=== PATIENT | male | born 1935 | race Caucasian/White ===

== ENCOUNTER 2017-07-11 09:08 | Day surgery (SDC) | payer MEDICARE ==
[~2017-07-11] VITALS: Ht 182.9 cm; Wt 79.4 kg
[~2017-07-11 09:08] MED LIST: BUPIVACAINE/PF 0.5% ONE; HEPARIN 1,000 UNITS/ML, 10ML ONE; PROTAMINE SULFATE 10 MG/ML, 5ML ONE; THROMBIN 5,000 UNIT VIAL TP ONE
[2017-07-11 10:35] VITALS: BP 180/80
[2017-07-11] MEDS ORDERED: INSU100V8 SQ (11:00)
[2017-07-11] MEDS ORDERED: CHOL20002 PO (11:00)
[2017-07-11] MEDS ORDERED: SEVE800T8 PO (11:00)
[2017-07-11] MEDS ORDERED: INSU100C5 SQ-INSULIN (11:00)
[2017-07-11] MEDS ORDERED: LOSA100T6 PO (11:00)
[2017-07-11] MEDS ORDERED: FENTANYL PF 100 MCG/2ML ONE (11:08)
[2017-07-11] MEDS ORDERED: CEFAZOLIN 1,000 MG ONE (11:47)
[2017-07-11] MEDS ORDERED: PROPOFOL 10 MG/ML, 20ML ONE (11:47)
[2017-07-11] MEDS ORDERED: PROMETHAZINE 25 MG/ML, 1ML IV PRN (12:00)
[2017-07-11] MEDS ORDERED: ONDANSETRON 2MG/ML, 2ML IVPush PRN (12:00)
[2017-07-11] MEDS ORDERED: HYDROmorphone 1 MG/ML, 1ML IV PRN (12:00)
[2017-07-11] MEDS ORDERED: hydrALAzine 20 MG/ML, 1ML IV PRN (12:00)
[2017-07-11] MEDS ORDERED: OXYcodone 5 MG/5 ML ORAL.SOL UDC PO PRN (12:00)
[2017-07-11] MEDS ORDERED: LABETALOL 5MG/ML, 20ML IV PRN (12:00)
[2017-07-11] MEDS ORDERED: FENTANYL PF 100 MCG/2ML IV PRN (12:00)
[2017-07-11] MEDS ORDERED: OXYcodone 5 MG/5 ML ORAL.SOL UDC ONE (12:57)
[2017-07-11] MEDS ORDERED: HEPARIN 1,000 UNITS/ML, 1ML IV ONE (13:30)
[2017-07-11] MEDS ORDERED: HEPARIN 1,000 UNITS/ML, 1ML IVPush ONE (13:30)
== END 2017-07-11 15:15 ==
LOC: OUT 09:08
PROVIDERS: ATTEND Surgery Vascular Surgery
DX: E11.22 Type 2 diabetes mellitus with diabetic chronic kidney disease (principal); I12.0 Hypertensive chronic kidney disease with stage 5 chronic kidney disease or end stage renal disease; N18.6 End stage renal disease; Z88.8 Allergy status to other drugs, medicaments and biological substances; Z79.4 Long term (current) use of insulin
CPT/HCPCS: 36415; 36821; 80047; 93005; J0690; J1644; J2704; J3010; J2720; J3490

== ENCOUNTER → 2017-09-22 | Outpatient (CLI) | payer MEDICARE ==
[~2017-09-22] MED LIST changes: +ASPI-496 PO; +ATOR40TA78 PO; -BUPIVACAINE/PF 0.5% ONE; +CHOL20002 PO; +CLOP75TA52 PO; +GABA300C10 PO; -HEPARIN 1,000 UNITS/ML, 10ML ONE; +INSU100C5 SQ-INSULIN; +INSU100V8 SQ; +LOSA100T6 PO; -PROTAMINE SULFATE 10 MG/ML, 5ML ONE; +SEVE800T8 PO; -THROMBIN 5,000 UNIT VIAL TP ONE
[2017-09-22 15:22] LABS: HEMATOCRIT 29.9 % (39.2-51.8); HEMOGLOBIN 10.3 g/dL (13.7-18.0); WHITE BLOOD COUNT 5.9 x10^3/uL (3.4-10)
[2017-09-22 15:45] LABS: BLOOD UREA NITROGEN 33 mg/dL (7-18)
[2017-09-22 15:50] LABS: ASPARTATE AMINO TRANSFERASE 16 U/L (15-37)
== END | disposition home or self-care (01) ==
LOC: STAR 14:15
PROVIDERS: ATTEND Surgery
DX: Z01.818 Encounter for other preprocedural examination (principal); R94.31 Abnormal electrocardiogram [ECG] [EKG]; I70.245 Atherosclerosis of native arteries of left leg with ulceration of other part of foot; L97.529 Non-pressure chronic ulcer of other part of left foot with unspecified severity; R79.1 Abnormal coagulation profile
CPT/HCPCS: 36415; 80053; 85025; 85610; 85730; 93005

== ENCOUNTER 2017-09-29 12:16 | Inpatient (IN) | payer MEDICARE ==
[~2017-09-29] VITALS: Ht 182.9 cm; Wt 80.3 kg
[2017-09-29 13:14] VITALS: BP 148/73
[2017-09-29] MEDS ORDERED: SODIUM CHLORIDE 0.45% 1,000 ML IV SCH (13:30)
[2017-09-29] MEDS ORDERED: PLEASE ENTER HEIGHT AND WEIGHT MC SCH (13:30)
[2017-09-29] MEDS ORDERED: FENTANYL PF 100 MCG/2ML ONE (15:06)
[2017-09-29] MEDS ORDERED: HEPARIN 1,000 UNITS/ML, 10ML ONE (15:06)
[2017-09-29] MEDS ORDERED: NALOXONE 1 MG/ML, 2ML ONE (15:06)
[2017-09-29] MEDS ORDERED: PROTAMINE SULFATE 10 MG/ML, 25ML ONE (15:06)
[2017-09-29] MEDS ORDERED: MIDAZOLAM 1 MG/ML, 5ML ONE (15:06)
[2017-09-29] MEDS ORDERED: LIDOCAINE 2%, 20ML ONE (15:06)
[2017-09-29] MEDS ORDERED: VISIPAQUE 270 MG/ML, 50ML BOTTLE ONE (16:00)
[2017-09-29] MEDS ORDERED: SODIUM CHLORIDE 0.9% 1,000 ML IV SCH (16:55)
[2017-09-29] MEDS ORDERED: INSULIN ASPART 100 UNITS/ML, PEN SQ-INSULIN SCH (17:00)
[2017-09-29] MEDS ORDERED: morphine SULFATE 10 MG/ML, 1ML IVPush PRN (17:00)
[2017-09-29] MEDS ORDERED: hydrALAzine 20 MG/ML, 1ML IVPush PRN (17:00)
[2017-09-29] MEDS ORDERED: ONDANSETRON 2MG/ML, 2ML IVPush PRN (17:00)
[2017-09-29 18:02] LABS: HEMATOCRIT 26.5 % (39.2-51.8); WHITE BLOOD COUNT 5.6 x10^3/uL (3.4-10)
[2017-09-29 18:14] LABS: BLOOD UREA NITROGEN 30 mg/dL (7-18)
[2017-09-29] MEDS ORDERED: HYDROcodone/APAP 5/325 TABLET PO PRN (19:00)
[2017-09-29] MEDS: POTASSIUM CHLORIDE 20 MEQ in LACTATED RINGERS 1,000 ML IV SCH (19:00)
[2017-09-29 20:05] VITALS: BP 157/76
[2017-09-29] MEDS ORDERED: ATORVASTATIN 40 MG TABLET PO SCH (21:00)
[2017-09-29] MEDS ORDERED: INSULIN DETEMIR 100 UNITS/ML, PEN SQ-INSULIN SCH (21:00)
[2017-09-29] MEDS: GABAPENTIN 300 MG CAPSULE PO SCH (22:20)
[2017-09-29] MEDS: INSULIN ASPART 100 UNITS/ML, 3ML PEN HIGH DOSE SS SQ-INSULIN SCH (22:21)
[2017-09-29 23:47] VITALS: BP 140/65
[2017-09-30] MEDS: POTASSIUM CHLORIDE 20 MEQ in LACTATED RINGERS 1,000 ML IV SCH (03:05)
[2017-09-30 04:00] VITALS: BP 154/71
[2017-09-30 05:40] LABS: HEMATOCRIT 25.8 % (39.2-51.8); HEMOGLOBIN 8.8 g/dL (13.7-18.0); WHITE BLOOD COUNT 5.9 x10^3/uL (3.4-10)
[2017-09-30 05:51] LABS: ASPARTATE AMINO TRANSFERASE 10 U/L (15-37); BLOOD UREA NITROGEN 32 mg/dL (7-18)
[2017-09-30] MEDS ORDERED: FENTANYL PF 100 MCG/2ML ONE (06:36)
[2017-09-30] MEDS ORDERED: MIDAZOLAM 1 MG/ML, 2ML ONE (06:36)
[2017-09-30] MEDS ORDERED: PROPOFOL 10 MG/ML, 20ML ONE ×2 (06:48→08:21)
[2017-09-30] MEDS ORDERED: CEFAZOLIN 1,000 MG ONE ×2 (06:48→08:21)
[2017-09-30] MEDS ORDERED: DEXAMETHASONE 4 MG/ML, 1ML ONE ×2 (06:48→08:21)
[2017-09-30] MEDS ORDERED: ONDANSETRON 2MG/ML, 2ML ONE ×2 (06:48→08:21)
[2017-09-30] MEDS ORDERED: FENTANYL PF 250 MCG/5ML ONE (06:48)
[2017-09-30] MEDS: INSULIN ASPART 100 UNITS/ML, 3ML PEN HIGH DOSE SS SQ-INSULIN SCH ×3 (07:00→16:24)
[2017-09-30] MEDS ORDERED: ACETAMINOPHEN 325 MG TABLET PO PRN (07:30)
[2017-09-30] MEDS ORDERED: LABETALOL 5MG/ML, 20ML IV PRN (07:30)
[2017-09-30] MEDS ORDERED: PANTOPRAZOLE 40 MG IV IVPush SCH (07:30)
[2017-09-30] MEDS ORDERED: METOPROLOL 1 MG/ML, 5ML IV PRN (07:30)
[2017-09-30] MEDS ORDERED: EPHEDRINE 50 MG/ML, 1ML IVPush PRN (07:30)
[2017-09-30] MEDS ORDERED: ALBUTEROL SULFATE 2.5 MG/3 ML NPPB PRN (07:30)
[2017-09-30] MEDS ORDERED: MIDAZOLAM 1 MG/ML, 2ML IV PRN (07:30)
[2017-09-30] MEDS ORDERED: PROMETHAZINE 25 MG/ML, 1ML IV PRN (07:30)
[2017-09-30] MEDS ORDERED: hydrALAzine 20 MG/ML, 1ML IV PRN (07:30)
[2017-09-30] MEDS ORDERED: HYDROmorphone 1 MG/ML, 1ML IV PRN (07:30)
[2017-09-30] MEDS ORDERED: HYDROcodone/APAP 7.5-325MG/15ML UDC PO PRN (07:30)
[2017-09-30] MEDS ORDERED: ONDANSETRON 2MG/ML, 2ML IVPush PRN (07:30)
[2017-09-30] MEDS ORDERED: OXYcodone 5 MG/5 ML ORAL.SOL UDC PO PRN (07:30)
[2017-09-30] MEDS: FENTANYL PF 100 MCG/2ML IV PRN ×2 (07:59→08:25)
[2017-09-30] MEDS ORDERED: CHOLECALCIFEROL 1,000 UNIT TABLET PO SCH ×2 (09:00→11:00)
[2017-09-30] MEDS ORDERED: CLOPIDOGREL 75 MG TABLET PO SCH ×2 (09:00→11:00)
[2017-09-30] MEDS: SEVELAMER 800MG TABLET PO SCH ×3 (09:22→16:24)
[2017-09-30] MEDS: GABAPENTIN 300 MG CAPSULE PO SCH ×3 (09:23→16:22)
[2017-09-30 09:30] VITALS: BP 154/43
[2017-09-30] MEDS: SEVELAMER CARBONATE 800 MG PO SCH ×3 (10:30→17:00)
[2017-09-30] MEDS ORDERED: HYDR-3240 PO (10:32)
[2017-09-30] MEDS ORDERED: ASPIRIN 81 MG TABLET EC PO SCH (11:00)
[2017-09-30] MEDS ORDERED: MEPERIDINE/PF 50 MG/ML IV PRN (14:00)
[2017-09-30] MEDS ORDERED: MORPHINE SULFATE 4 MG/ML, 1ML IVPush PRN (14:00)
[2017-09-30] MEDS ORDERED: ATORVASTATIN 40 MG TABLET PO SCH (21:00)
[2017-09-30] MEDS ORDERED: INSULIN GLARGINE HUM REC ANLOG 10 UNIT SQ SCH (21:00)
== END 2017-09-30 17:53 | disposition home or self-care (01) | DRG 299 ==
LOC: OUT 12:16 → 4NOR 16:55 → OUT 16:55 → SUATTDRO 16:55 → 4NOR 17:05
PROVIDERS: ADMIT Internal Medicine; ATTEND Internal Medicine
PROC: B41G1ZZ Fluoroscopy of Left Lower Extremity Arteries using Low Osmolar Contrast (ICD-10-PCS; 2017-09-29)
PROC: 5A1D70Z Performance of Urinary Filtration, Intermittent, Less than 6 Hours Per Day (ICD-10-PCS; principal; 2017-09-30 07:00)
DX: E11.52 Type 2 diabetes mellitus with diabetic peripheral angiopathy with gangrene (principal); N18.6 End stage renal disease; E11.22 Type 2 diabetes mellitus with diabetic chronic kidney disease; I12.0 Hypertensive chronic kidney disease with stage 5 chronic kidney disease or end stage renal disease; I70.268 Atherosclerosis of native arteries of extremities with gangrene, other extremity; D64.9 Anemia, unspecified; E78.5 Hyperlipidemia, unspecified; I99.8 Other disorder of circulatory system; Z80.0 Family history of malignant neoplasm of digestive organs; Z87.891 Personal history of nicotine dependence; Z85.828 Personal history of other malignant neoplasm of skin; Z99.2 Dependence on renal dialysis; Z82.49 Family history of ischemic heart disease and other diseases of the circulatory system; Z83.3 Family history of diabetes mellitus; Z88.7 Allergy status to serum and vaccine; Z79.82 Long term (current) use of aspirin
CPT/HCPCS: 36200; 36415; 75630; 75710; 80048; 80053; 82962; 83036; 83735; 84100; 84439; 84443; 85025; 85610; 99156; 99157; J0690; J1100; J1644; J1815; J2250; J2405; J2704; J2720; J3010; J3490; Q9966; C1751; C1769; C1894; J2310; J7030

== ENCOUNTER 2017-10-03 02:10 | Inpatient (IN) | payer MEDICARE ==
[~2017-10-03] VITALS: Ht 182.9 cm; Wt 79.0 kg
[2017-10-03 01:40] VITALS: BP 133/67
[~2017-10-03 02:10] MED LIST changes: +HYDR-3240 PO
[2017-10-03] MEDS: SODIUM CHLORIDE 0.9% 1,000 ML IV SCH ×2 (02:35→08:00)
[2017-10-03] MEDS: [UNRECOGNIZED DRUG - OTHER] MC SCH ×2 (03:00→04:00)
[2017-10-03] MEDS ORDERED: GLUCAGON 1 MG IM PRN (03:00)
[2017-10-03] MEDS ORDERED: VANCOMYCIN PER PHARMACY MC PRN (03:00)
[2017-10-03] MEDS ORDERED: DEXTROSE 4 GM TAB.CHEW PO PRN (03:00)
[2017-10-03] MEDS: INSULIN DETEMIR 100 UNITS/ML, PEN SQ-INSULIN SCH ×2 (03:00→22:18)
[2017-10-03] MEDS: HEPARIN 5,000 UNITS/ML, 1ML SQ SCH ×2 (03:00→18:13)
[2017-10-03] MEDS: CLINDAMYCIN PMX 300MG/50ML 50 ML IV SCH ×2 (03:00→11:00)
[2017-10-03] MEDS ORDERED: DEXTROSE 50%, 50ML SYRINGE IVPush PRN (03:00)
[2017-10-03 03:56] LABS: BASOPHILS # (AUTO) 0.06 x10^3/uL (0-0.1); BASOPHILS % (AUTO) 1 % (0-1); EOSINOPHILS % (AUTO) 0 % (1-7); LYMPHOCYTES # (AUTO) 1.37 x10^3/uL (1-3.4); LYMPHOCYTES % (AUTO) 11 % (22-44); MD NO; MEAN CORPUSCULAR HEMOGLOBIN 31.5 pg (27.5-34.5); MEAN CORPUSCULAR HGB CONC 33.4 g/dL (33.2-36.2); MEAN CORPUSCULAR VOLUME 94.2 fL (81-97); MEAN PLATELET VOLUME 7.1 fL (7.4-10.4); MONOCYTES # (AUTO) 0.79 x10^3/uL (0.2-0.8); MONOCYTES % (AUTO) 6 % (2-9); NEUTROPHILS # (AUTO) 10.27 x10^3/uL (1.8-6.8); NEUTROPHILS % (AUTO) 82 % (42-75); PLATELET COUNT 167 x10^3/uL (130-400); RED BLOOD COUNT 3.11 x10^6/uL (4.38-5.82); RED CELL DISTRIBUTION WIDTH 14.4 % (9.4-14.8)
[2017-10-03] MEDS ORDERED: VANCOMYCIN 1,500 MG in SODIUM CHLORIDE 0.9% 250 ML IV ONE (04:00)
[2017-10-03] MEDS ORDERED: PHARMACOKINETIC MONITORING MC PRN (04:00)
[2017-10-03] MEDS ORDERED: PHARMACOKINETIC CONSULTATION MC ONE (04:00)
[2017-10-03 04:01] LABS: ALANINE AMINOTRANSFERASE 9 U/L (12-78); ALBUMIN 2.6 g/dL (3.4-5.0); ANION GAP 10 mmol/L (5-15); CALCIUM 7.9 mg/dL (8.5-10.1); CHLORIDE 107 mmol/L (98-107); CREATININE 5.23 mg/dL (0.7-1.3)
[2017-10-03 04:03] LABS: ALKALINE PHOSPHATASE 76 U/L (45-117); BILIRUBIN,TOTAL 0.5 mg/dL (0.2-1.0); TOTAL PROTEIN 6.1 g/dL (6.4-8.2)
[2017-10-03] MEDS: INSULIN ASPART 100 UNITS/ML, PEN SQ-INSULIN SCH ×4 (07:00→22:18)
[2017-10-03 07:48] VITALS: BP 153/68
[2017-10-03] MEDS: CLOPIDOGREL 75 MG TABLET PO SCH (09:22)
[2017-10-03] MEDS: ASPIRIN 81 MG TABLET EC PO SCH (09:22)
[2017-10-03] MEDS: GABAPENTIN 300 MG CAPSULE PO SCH ×3 (09:22→22:17)
[2017-10-03] MEDS: POLYETHYLENE GLYCOL 17 GM PACKET PO SCH (09:22)
[2017-10-03] MEDS: SEVELAMER 800MG TABLET PO SCH ×3 (09:22→22:17)
[2017-10-03] MEDS: CHOLECALCIFEROL 1,000 UNIT TABLET PO SCH (09:22)
[2017-10-03] MEDS: SODIUM CHLORIDE FLUSH 10ML SYR IVF SCH ×2 (09:23→21:00)
[2017-10-03] MEDS: ACETAMINOPHEN 325 MG TABLET PO PRN ×2 (09:45→18:14)
[2017-10-03] MEDS ORDERED: PHARMACY INSTRUCTION MC SCH (11:30)
[2017-10-03] MEDS: PIPERACILLIN/TAZO/PMX 2.25GM 50 ML IVPB SCH (12:49)
[2017-10-03 12:54] VITALS: BP 138/61
[2017-10-03 20:00] VITALS: BP 125/51
[2017-10-03] MEDS: ATORVASTATIN 40 MG TABLET PO SCH (22:17)
[2017-10-04] MEDS: PIPERACILLIN/TAZO/PMX 2.25GM 50 ML IVPB SCH ×2 (00:15→12:47)
[2017-10-04 02:00] VITALS: BP 137/61
[2017-10-04] MEDS: HEPARIN 5,000 UNITS/ML, 1ML SQ SCH ×2 (04:24→17:40)
[2017-10-04 06:03] LABS: CHLORIDE 103 mmol/L (98-107)
[2017-10-04 06:04] LABS: BASOPHILS % (AUTO) 1 % (0-1); EOSINOPHILS # (AUTO) 0.09 x10^3/uL (0-0.4); EOSINOPHILS % (AUTO) 1 % (1-7); LYMPHOCYTES % (AUTO) 14 % (22-44); MD NO; MEAN CORPUSCULAR HEMOGLOBIN 32.3 pg (27.5-34.5); MEAN CORPUSCULAR HGB CONC 34.5 g/dL (33.2-36.2); MEAN CORPUSCULAR VOLUME 93.6 fL (81-97); MEAN PLATELET VOLUME 7.9 fL (7.4-10.4); MONOCYTES # (AUTO) 0.64 x10^3/uL (0.2-0.8); MONOCYTES % (AUTO) 8 % (2-9); NEUTROPHILS # (AUTO) 6.41 x10^3/uL (1.8-6.8); NEUTROPHILS % (AUTO) 76 % (42-75); PLATELET COUNT 143 x10^3/uL (130-400); RED BLOOD COUNT 2.63 x10^6/uL (4.38-5.82); RED CELL DISTRIBUTION WIDTH 14.4 % (9.4-14.8)
[2017-10-04 06:27] LABS: ALANINE AMINOTRANSFERASE 6 U/L (12-78); ALBUMIN 2.4 g/dL (3.4-5.0); ALKALINE PHOSPHATASE 68 U/L (45-117); ANION GAP 11 mmol/L (5-15); BILIRUBIN,TOTAL 0.4 mg/dL (0.2-1.0); CALCIUM 8.3 mg/dL (8.5-10.1); CREATININE 3.64 mg/dL (0.7-1.3)
[2017-10-04] MEDS: INSULIN ASPART 100 UNITS/ML, PEN SQ-INSULIN SCH ×4 (07:00→20:43)
[2017-10-04 08:22] VITALS: BP 133/59
[2017-10-04] MEDS: CLOPIDOGREL 75 MG TABLET PO SCH (08:50)
[2017-10-04] MEDS: GABAPENTIN 300 MG CAPSULE PO SCH ×3 (08:50→20:42)
[2017-10-04] MEDS: POLYETHYLENE GLYCOL 17 GM PACKET PO SCH (08:50)
[2017-10-04] MEDS: ASPIRIN 81 MG TABLET EC PO SCH (08:51)
[2017-10-04] MEDS: SEVELAMER 800MG TABLET PO SCH ×3 (08:51→20:42)
[2017-10-04] MEDS: CHOLECALCIFEROL 1,000 UNIT TABLET PO SCH (08:58)
[2017-10-04 12:34] VITALS: BP 127/52
[2017-10-04] MEDS: SODIUM CHLORIDE FLUSH 10ML SYR IVF SCH ×2 (13:41→20:42)
[2017-10-04] MEDS: ACETAMINOPHEN 325 MG TABLET PO PRN (13:58)
[2017-10-04] MEDS: SODIUM CHLORIDE 0.9% 1,000 ML IV SCH (17:24)
[2017-10-04 20:00] VITALS: BP 134/54
[2017-10-04] MEDS: ATORVASTATIN 40 MG TABLET PO SCH (20:42)
[2017-10-04] MEDS: INSULIN DETEMIR 100 UNITS/ML, PEN SQ-INSULIN SCH (20:43)
[2017-10-05] MEDS: PIPERACILLIN/TAZO/PMX 2.25GM 50 ML IVPB SCH ×2 (00:44→12:57)
[2017-10-05 02:00] VITALS: BP 148/68
[2017-10-05] MEDS: HEPARIN 5,000 UNITS/ML, 1ML SQ SCH ×2 (05:05→20:52)
[2017-10-05 05:54] LABS: BASOPHILS # (AUTO) 0.01 x10^3/uL (0-0.1); BASOPHILS % (AUTO) 0 % (0-1); EOSINOPHILS # (AUTO) 0.06 x10^3/uL (0-0.4); EOSINOPHILS % (AUTO) 1 % (1-7); LYMPHOCYTES # (AUTO) 1.09 x10^3/uL (1-3.4); LYMPHOCYTES % (AUTO) 15 % (22-44); MD NO; MEAN CORPUSCULAR HEMOGLOBIN 31.4 pg (27.5-34.5); MEAN CORPUSCULAR HGB CONC 33.4 g/dL (33.2-36.2); MEAN CORPUSCULAR VOLUME 94.2 fL (81-97); MEAN PLATELET VOLUME 7.6 fL (7.4-10.4); MONOCYTES # (AUTO) 0.47 x10^3/uL (0.2-0.8); MONOCYTES % (AUTO) 6 % (2-9); NEUTROPHILS # (AUTO) 5.78 x10^3/uL (1.8-6.8); NEUTROPHILS % (AUTO) 78 % (42-75); PLATELET COUNT 153 x10^3/uL (130-400); RED BLOOD COUNT 2.51 x10^6/uL (4.38-5.82); RED CELL DISTRIBUTION WIDTH 14.2 % (9.4-14.8)
[2017-10-05 06:00] LABS: CALCIUM 8.1 mg/dL (8.5-10.1); CHLORIDE 105 mmol/L (98-107)
[2017-10-05 06:06] LABS: ALANINE AMINOTRANSFERASE 10 U/L (12-78); ALBUMIN 2.2 g/dL (3.4-5.0); ALKALINE PHOSPHATASE 84 U/L (45-117); ANION GAP 9 mmol/L (5-15); BILIRUBIN,TOTAL 0.5 mg/dL (0.2-1.0); CREATININE 4.39 mg/dL (0.7-1.3); TOTAL PROTEIN 5.7 g/dL (6.4-8.2); VANCOMYCIN,RANDOM 11.2 mcg/mL
[2017-10-05] MEDS ORDERED: VANCOMYCIN 1,500 MG in SODIUM CHLORIDE 0.9% 250 ML IV SCH (07:00)
[2017-10-05] MEDS: INSULIN ASPART 100 UNITS/ML, PEN SQ-INSULIN SCH ×4 (07:00→20:54)
[2017-10-05 07:14] VITALS: BP 141/61
[2017-10-05] MEDS: POLYETHYLENE GLYCOL 17 GM PACKET PO SCH (07:38)
[2017-10-05] MEDS: SODIUM CHLORIDE FLUSH 10ML SYR IVF SCH ×2 (09:00→20:53)
[2017-10-05] MEDS: SEVELAMER 800MG TABLET PO SCH ×3 (09:00→20:52)
[2017-10-05] MEDS: ASPIRIN 81 MG TABLET EC PO SCH (09:00)
[2017-10-05] MEDS: GABAPENTIN 300 MG CAPSULE PO SCH ×3 (09:00→20:52)
[2017-10-05] MEDS: SODIUM CHLORIDE 0.9% 1,000 ML IV SCH (11:00)
[2017-10-05] MEDS: CLOPIDOGREL 75 MG TABLET PO SCH (12:57)
[2017-10-05] MEDS: CHOLECALCIFEROL 1,000 UNIT TABLET PO SCH (12:57)
[2017-10-05 13:29] VITALS: BP 122/45
[2017-10-05 20:00] VITALS: BP 133/53
[2017-10-05] MEDS: INSULIN DETEMIR 100 UNITS/ML, PEN SQ-INSULIN SCH (20:53)
[2017-10-05] MEDS: ATORVASTATIN 40 MG TABLET PO SCH (20:53)
[2017-10-05 23:35] LABS: ABSOLUTE RETICS # 0.029 x10^6/uL (0.5-1.5); RED BLOOD COUNT 2.6 x10^6/uL (4.38-5.82); RETICULOCYTE COUNT % 1.13 % (0.5-1.5)
[2017-10-06 00:07] LABS: CALCIUM 8.1 mg/dL (8.5-10.1)
[2017-10-06] MEDS: PIPERACILLIN/TAZO/PMX 2.25GM 50 ML IVPB SCH ×2 (00:09→12:36)
[2017-10-06 02:00] VITALS: BP 139/66
[2017-10-06 05:46] LABS: BASOPHILS # (AUTO) 0.11 x10^3/uL (0-0.1); BASOPHILS % (AUTO) 2 % (0-1); EOSINOPHILS # (AUTO) 0.14 x10^3/uL (0-0.4); EOSINOPHILS % (AUTO) 2 % (1-7); LYMPHOCYTES # (AUTO) 1.33 x10^3/uL (1-3.4); LYMPHOCYTES % (AUTO) 21 % (22-44); MD NO; MEAN CORPUSCULAR HEMOGLOBIN 31.5 pg (27.5-34.5); MEAN CORPUSCULAR HGB CONC 33.6 g/dL (33.2-36.2); MEAN CORPUSCULAR VOLUME 93.5 fL (81-97); MEAN PLATELET VOLUME 7.8 fL (7.4-10.4); MONOCYTES # (AUTO) 0.54 x10^3/uL (0.2-0.8); MONOCYTES % (AUTO) 8 % (2-9); NEUTROPHILS # (AUTO) 4.36 x10^3/uL (1.8-6.8); NEUTROPHILS % (AUTO) 67 % (42-75); PLATELET COUNT 158 x10^3/uL (130-400); RED CELL DISTRIBUTION WIDTH 14.2 % (9.4-14.8)
[2017-10-06 05:55] LABS: ANION GAP 8 mmol/L (5-15); CALCIUM 7.9 mg/dL (8.5-10.1); CHLORIDE 106 mmol/L (98-107); CREATININE 3.59 mg/dL (0.7-1.3)
[2017-10-06] MEDS: INSULIN ASPART 100 UNITS/ML, PEN SQ-INSULIN SCH ×4 (07:00→22:15)
[2017-10-06 07:02] VITALS: BP 137/62
[2017-10-06] MEDS: POLYETHYLENE GLYCOL 17 GM PACKET PO SCH (09:32)
[2017-10-06] MEDS: SODIUM CHLORIDE 0.9% 1,000 ML IV SCH (09:33)
[2017-10-06] MEDS: SODIUM CHLORIDE FLUSH 10ML SYR IVF SCH ×2 (09:34→22:15)
[2017-10-06] MEDS: GABAPENTIN 300 MG CAPSULE PO SCH ×3 (09:35→22:13)
[2017-10-06] MEDS: CLOPIDOGREL 75 MG TABLET PO SCH (09:35)
[2017-10-06] MEDS: ASPIRIN 81 MG TABLET EC PO SCH (09:36)
[2017-10-06] MEDS: HEPARIN 5,000 UNITS/ML, 1ML SQ SCH ×2 (09:36→22:13)
[2017-10-06] MEDS: SEVELAMER 800MG TABLET PO SCH ×3 (09:36→22:13)
[2017-10-06] MEDS: CHOLECALCIFEROL 1,000 UNIT TABLET PO SCH (09:36)
[2017-10-06 10:32] LABS: HCT (SEDRATE) 23.8 % (39.2-51.8)
[2017-10-06 12:43] VITALS: BP 135/50
[2017-10-06 20:19] VITALS: BP 137/60
[2017-10-06] MEDS: ATORVASTATIN 40 MG TABLET PO SCH (22:13)
[2017-10-06] MEDS: INSULIN DETEMIR 100 UNITS/ML, PEN SQ-INSULIN SCH (22:14)
[2017-10-07] MEDS: PIPERACILLIN/TAZO/PMX 2.25GM 50 ML IVPB SCH ×2 (00:09→15:14)
[2017-10-07 04:30] VITALS: BP 142/90
[2017-10-07] MEDS ORDERED: DARBEPOETIN 60 MCG/ML SQ SCH (04:30)
[2017-10-07 04:56] LABS: BASOPHILS # (AUTO) 0.04 x10^3/uL (0-0.1); BASOPHILS % (AUTO) 1 % (0-1); EOSINOPHILS # (AUTO) 0.13 x10^3/uL (0-0.4); EOSINOPHILS % (AUTO) 2 % (1-7); LYMPHOCYTES # (AUTO) 1.45 x10^3/uL (1-3.4); LYMPHOCYTES % (AUTO) 19 % (22-44); MD NO; MEAN CORPUSCULAR HEMOGLOBIN 31.5 pg (27.5-34.5); MEAN CORPUSCULAR HGB CONC 33.4 g/dL (33.2-36.2); MEAN CORPUSCULAR VOLUME 94.1 fL (81-97); MEAN PLATELET VOLUME 7.5 fL (7.4-10.4); MONOCYTES # (AUTO) 0.62 x10^3/uL (0.2-0.8); MONOCYTES % (AUTO) 8 % (2-9); NEUTROPHILS # (AUTO) 5.57 x10^3/uL (1.8-6.8); NEUTROPHILS % (AUTO) 71 % (42-75); PLATELET COUNT 170 x10^3/uL (130-400); RED BLOOD COUNT 2.77 x10^6/uL (4.38-5.82); RED CELL DISTRIBUTION WIDTH 14.3 % (9.4-14.8)
[2017-10-07 05:06] LABS: ANION GAP 9 mmol/L (5-15); CALCIUM 8.3 mg/dL (8.5-10.1); CHLORIDE 107 mmol/L (98-107)
[2017-10-07 05:10] LABS: CREATININE 4.54 mg/dL (0.7-1.3); VANCOMYCIN,RANDOM 16.6 mcg/mL
[2017-10-07] MEDS: IRON SUCROSE COMPLEX 100MG/5ML IV SCH (05:44)
[2017-10-07] MEDS: INSULIN ASPART 100 UNITS/ML, PEN SQ-INSULIN SCH ×4 (07:00→20:28)
[2017-10-07 07:58] VITALS: BP 147/64
[2017-10-07] MEDS: POLYETHYLENE GLYCOL 17 GM PACKET PO SCH (09:00)
[2017-10-07] MEDS: CHOLECALCIFEROL 1,000 UNIT TABLET PO SCH (09:30)
[2017-10-07] MEDS: GABAPENTIN 300 MG CAPSULE PO SCH ×3 (09:30→20:27)
[2017-10-07] MEDS: ASPIRIN 81 MG TABLET EC PO SCH (09:30)
[2017-10-07] MEDS: CLOPIDOGREL 75 MG TABLET PO SCH (09:30)
[2017-10-07] MEDS: SEVELAMER 800MG TABLET PO SCH ×3 (09:30→20:27)
[2017-10-07] MEDS: ACETAMINOPHEN 325 MG TABLET PO PRN (09:31)
[2017-10-07] MEDS: HEPARIN 5,000 UNITS/ML, 1ML SQ SCH ×2 (09:31→20:28)
[2017-10-07] MEDS: SODIUM CHLORIDE FLUSH 10ML SYR IVF SCH ×2 (09:37→20:29)
[2017-10-07] MEDS: HYDROcodone/APAP 5/325 TABLET PO PRN (11:19)
[2017-10-07] MEDS: SODIUM CHLORIDE 0.9% 1,000 ML IV SCH (15:14)
[2017-10-07 16:25] VITALS: BP 146/59
[2017-10-07] MEDS ORDERED: VANCOMYCIN 1,200 MG in SODIUM CHLORIDE 0.9% 250 ML IV ONE (17:00)
[2017-10-07 19:38] VITALS: BP 131/70
[2017-10-07] MEDS: ATORVASTATIN 40 MG TABLET PO SCH (20:27)
[2017-10-07] MEDS: INSULIN DETEMIR 100 UNITS/ML, PEN SQ-INSULIN SCH (20:29)
[2017-10-08] MEDS: PIPERACILLIN/TAZO/PMX 2.25GM 50 ML IVPB SCH ×2 (00:29→12:23)
[2017-10-08 01:45] VITALS: BP 136/67
[2017-10-08 05:13] LABS: BASOPHILS # (AUTO) 0.05 x10^3/uL (0-0.1); BASOPHILS % (AUTO) 1 % (0-1); EOSINOPHILS # (AUTO) 0.14 x10^3/uL (0-0.4); EOSINOPHILS % (AUTO) 2 % (1-7); LYMPHOCYTES # (AUTO) 1.44 x10^3/uL (1-3.4); LYMPHOCYTES % (AUTO) 19 % (22-44); MD NO; MEAN CORPUSCULAR HEMOGLOBIN 31.4 pg (27.5-34.5); MEAN CORPUSCULAR HGB CONC 33.7 g/dL (33.2-36.2); MEAN CORPUSCULAR VOLUME 93.1 fL (81-97); MEAN PLATELET VOLUME 7.8 fL (7.4-10.4); MONOCYTES # (AUTO) 0.77 x10^3/uL (0.2-0.8); MONOCYTES % (AUTO) 10 % (2-9); NEUTROPHILS # (AUTO) 5.07 x10^3/uL (1.8-6.8); NEUTROPHILS % (AUTO) 68 % (42-75); PLATELET COUNT 170 x10^3/uL (130-400); RED BLOOD COUNT 2.78 x10^6/uL (4.38-5.82); RED CELL DISTRIBUTION WIDTH 14.1 % (9.4-14.8)
[2017-10-08 05:14] LABS: ANION GAP 8 mmol/L (5-15); CALCIUM 8.3 mg/dL (8.5-10.1); CHLORIDE 104 mmol/L (98-107); CREATININE 3.55 mg/dL (0.7-1.3)
[2017-10-08] MEDS: IRON SUCROSE COMPLEX 100MG/5ML IV SCH (05:42)
[2017-10-08 06:50] VITALS: BP 127/60
[2017-10-08] MEDS: INSULIN ASPART 100 UNITS/ML, PEN SQ-INSULIN SCH ×4 (07:00→20:56)
[2017-10-08] MEDS: SODIUM CHLORIDE 0.9% 1,000 ML IV SCH (08:00)
[2017-10-08 08:15] VITALS: BP 127/60
[2017-10-08] MEDS: GABAPENTIN 300 MG CAPSULE PO SCH ×3 (08:34→20:55)
[2017-10-08] MEDS: CLOPIDOGREL 75 MG TABLET PO SCH (08:34)
[2017-10-08] MEDS: SEVELAMER 800MG TABLET PO SCH ×3 (08:34→20:55)
[2017-10-08] MEDS: ASPIRIN 81 MG TABLET EC PO SCH (08:34)
[2017-10-08] MEDS: CHOLECALCIFEROL 1,000 UNIT TABLET PO SCH (08:34)
[2017-10-08] MEDS: SODIUM CHLORIDE FLUSH 10ML SYR IVF SCH ×2 (08:35→20:55)
[2017-10-08] MEDS: HEPARIN 5,000 UNITS/ML, 1ML SQ SCH ×2 (08:35→20:57)
[2017-10-08] MEDS: POLYETHYLENE GLYCOL 17 GM PACKET PO SCH (08:35)
[2017-10-08] MEDS: HYDROcodone/APAP 5/325 TABLET PO PRN (12:29)
[2017-10-08 13:10] VITALS: BP 123/58
[2017-10-08] MEDS ORDERED: DARBEPOETIN 60 MCG/ML SQ SCH (14:54)
[2017-10-08] MEDS ORDERED: ACETAMINOPHEN 500 MG TABLET PO PRN (14:55)
[2017-10-08 20:23] VITALS: BP 169/71
[2017-10-08] MEDS: ATORVASTATIN 40 MG TABLET PO SCH (20:55)
[2017-10-08] MEDS: INSULIN DETEMIR 100 UNITS/ML, PEN SQ-INSULIN SCH (20:56)
[2017-10-09] MEDS: PIPERACILLIN/TAZO/PMX 2.25GM 50 ML IVPB SCH ×2 (01:04→13:12)
[2017-10-09 03:30] VITALS: BP 142/69
[2017-10-09 05:28] LABS: HEMOGLOBIN A1C 6.8 % (4.2-6.3)
[2017-10-09] MEDS: IRON SUCROSE COMPLEX 100MG/5ML IV SCH (06:04)
[2017-10-09] MEDS: INSULIN ASPART 100 UNITS/ML, PEN SQ-INSULIN SCH ×4 (07:00→21:24)
[2017-10-09 07:20] VITALS: BP 155/67
[2017-10-09] MEDS: POLYETHYLENE GLYCOL 17 GM PACKET PO SCH (08:24)
[2017-10-09] MEDS: CLOPIDOGREL 75 MG TABLET PO SCH (08:24)
[2017-10-09] MEDS: SEVELAMER 800MG TABLET PO SCH ×3 (08:24→21:21)
[2017-10-09] MEDS: GABAPENTIN 300 MG CAPSULE PO SCH ×3 (08:24→21:21)
[2017-10-09] MEDS: ASPIRIN 81 MG TABLET EC PO SCH (08:24)
[2017-10-09] MEDS: CHOLECALCIFEROL 1,000 UNIT TABLET PO SCH (08:24)
[2017-10-09] MEDS: SODIUM CHLORIDE FLUSH 10ML SYR IVF SCH ×2 (08:24→21:00)
[2017-10-09] MEDS: HEPARIN 5,000 UNITS/ML, 1ML SQ SCH ×2 (08:25→21:21)
[2017-10-09 09:53] LABS: ANION GAP 10 mmol/L (5-15); CALCIUM 8.1 mg/dL (8.5-10.1); CHLORIDE 102 mmol/L (98-107); CREATININE 4.58 mg/dL (0.7-1.3)
[2017-10-09] MEDS: SODIUM CHLORIDE 0.9% 1,000 ML IV SCH (13:12)
[2017-10-09 13:59] VITALS: BP 148/67
[2017-10-09] MEDS: HYDROcodone/APAP 5/325 TABLET PO PRN (14:47)
[2017-10-09 20:00] VITALS: BP 134/55
[2017-10-09] MEDS: ATORVASTATIN 40 MG TABLET PO SCH (21:21)
[2017-10-09] MEDS: INSULIN DETEMIR 100 UNITS/ML, PEN SQ-INSULIN SCH (21:23)
[2017-10-10] MEDS: PIPERACILLIN/TAZO/PMX 2.25GM 50 ML IVPB SCH ×2 (01:29→13:36)
[2017-10-10 02:00] VITALS: BP 142/75
[2017-10-10 05:17] LABS: BASOPHILS # (AUTO) 0.02 x10^3/uL (0-0.1); BASOPHILS % (AUTO) 0 % (0-1); EOSINOPHILS # (AUTO) 0.34 x10^3/uL (0-0.4); EOSINOPHILS % (AUTO) 5 % (1-7); LYMPHOCYTES # (AUTO) 1.02 x10^3/uL (1-3.4); LYMPHOCYTES % (AUTO) 14 % (22-44); MD NO; MEAN CORPUSCULAR HEMOGLOBIN 31.2 pg (27.5-34.5); MEAN CORPUSCULAR HGB CONC 33.3 g/dL (33.2-36.2); MEAN CORPUSCULAR VOLUME 93.8 fL (81-97); MEAN PLATELET VOLUME 8.1 fL (7.4-10.4); MONOCYTES # (AUTO) 0.59 x10^3/uL (0.2-0.8); MONOCYTES % (AUTO) 8 % (2-9); NEUTROPHILS # (AUTO) 5.46 x10^3/uL (1.8-6.8); NEUTROPHILS % (AUTO) 74 % (42-75); PLATELET COUNT 194 x10^3/uL (130-400); RED BLOOD COUNT 2.73 x10^6/uL (4.38-5.82); RED CELL DISTRIBUTION WIDTH 13.8 % (9.4-14.8)
[2017-10-10 05:27] LABS: CHLORIDE 101 mmol/L (98-107)
[2017-10-10 05:43] LABS: ALANINE AMINOTRANSFERASE 23 U/L (12-78); ALBUMIN 2.2 g/dL (3.4-5.0); ALKALINE PHOSPHATASE 138 U/L (45-117); ANION GAP 9 mmol/L (5-15); BILIRUBIN,TOTAL 0.4 mg/dL (0.2-1.0); CALCIUM 8.4 mg/dL (8.5-10.1); CREATININE 5.14 mg/dL (0.7-1.3); TOTAL PROTEIN 6.6 g/dL (6.4-8.2)
[2017-10-10 05:48] LABS: VANCOMYCIN,RANDOM 19.4 mcg/mL
[2017-10-10 06:11] LABS: HCT (SEDRATE) 25.6 % (39.2-51.8)
[2017-10-10] MEDS: IRON SUCROSE COMPLEX 100MG/5ML IV SCH (06:39)
[2017-10-10] MEDS: INSULIN ASPART 100 UNITS/ML, PEN SQ-INSULIN SCH ×4 (07:00→21:05)
[2017-10-10 08:30] VITALS: BP 161/72
[2017-10-10] MEDS ORDERED: VANCOMYCIN 1,500 MG in SODIUM CHLORIDE 0.9% 250 ML IV SCH (09:00)
[2017-10-10] MEDS: HYDROcodone/APAP 5/325 TABLET PO PRN ×2 (09:05→14:59)
[2017-10-10] MEDS: ASPIRIN 81 MG TABLET EC PO SCH (11:53)
[2017-10-10] MEDS: GABAPENTIN 300 MG CAPSULE PO SCH ×3 (11:54→21:04)
[2017-10-10] MEDS: SEVELAMER 800MG TABLET PO SCH ×3 (11:54→21:04)
[2017-10-10] MEDS: HEPARIN 5,000 UNITS/ML, 1ML SQ SCH ×2 (11:54→21:06)
[2017-10-10] MEDS: CLOPIDOGREL 75 MG TABLET PO SCH (11:54)
[2017-10-10] MEDS: CHOLECALCIFEROL 1,000 UNIT TABLET PO SCH (11:54)
[2017-10-10] MEDS: SODIUM CHLORIDE FLUSH 10ML SYR IVF SCH ×2 (11:55→21:00)
[2017-10-10] MEDS: POLYETHYLENE GLYCOL 17 GM PACKET PO SCH (11:59)
[2017-10-10] MEDS: SODIUM CHLORIDE 0.9% 1,000 ML IV SCH (12:00)
[2017-10-10 12:45] VITALS: BP 136/60
[2017-10-10 18:34] VITALS: BP 148/60
[2017-10-10] MEDS: ATORVASTATIN 40 MG TABLET PO SCH (21:04)
[2017-10-10] MEDS: INSULIN DETEMIR 100 UNITS/ML, PEN SQ-INSULIN SCH (21:06)
[2017-10-11] MEDS: PIPERACILLIN/TAZO/PMX 2.25GM 50 ML IVPB SCH ×2 (01:26→12:50)
[2017-10-11 02:05] VITALS: BP 160/61
[2017-10-11 04:54] LABS: BASOPHILS # (AUTO) 0.03 x10^3/uL (0-0.1); BASOPHILS % (AUTO) 0 % (0-1); EOSINOPHILS # (AUTO) 0.14 x10^3/uL (0-0.4); EOSINOPHILS % (AUTO) 2 % (1-7); LYMPHOCYTES # (AUTO) 0.95 x10^3/uL (1-3.4); LYMPHOCYTES % (AUTO) 11 % (22-44); MD NO; MEAN CORPUSCULAR HEMOGLOBIN 31.3 pg (27.5-34.5); MEAN CORPUSCULAR HGB CONC 33.5 g/dL (33.2-36.2); MEAN CORPUSCULAR VOLUME 93.5 fL (81-97); MEAN PLATELET VOLUME 7.7 fL (7.4-10.4); MONOCYTES # (AUTO) 0.69 x10^3/uL (0.2-0.8); MONOCYTES % (AUTO) 8 % (2-9); NEUTROPHILS # (AUTO) 6.98 x10^3/uL (1.8-6.8); NEUTROPHILS % (AUTO) 80 % (42-75); PLATELET COUNT 198 x10^3/uL (130-400); RED BLOOD COUNT 2.46 x10^6/uL (4.38-5.82); RED CELL DISTRIBUTION WIDTH 13.9 % (9.4-14.8)
[2017-10-11 05:06] LABS: ANION GAP 9 mmol/L (5-15); CALCIUM 7.9 mg/dL (8.5-10.1); CHLORIDE 100 mmol/L (98-107); CREATININE 4.09 mg/dL (0.7-1.3)
[2017-10-11] MEDS: IRON SUCROSE COMPLEX 100MG/5ML IV SCH (05:43)
[2017-10-11 06:58] VITALS: BP 140/69
[2017-10-11] MEDS: INSULIN ASPART 100 UNITS/ML, PEN SQ-INSULIN SCH ×4 (07:00→21:50)
[2017-10-11] MEDS: ASPIRIN 81 MG TABLET EC PO SCH (08:27)
[2017-10-11] MEDS: SODIUM CHLORIDE 0.9% 1,000 ML IV SCH (08:27)
[2017-10-11] MEDS: SEVELAMER 800MG TABLET PO SCH ×3 (08:27→21:18)
[2017-10-11] MEDS: CLOPIDOGREL 75 MG TABLET PO SCH (08:27)
[2017-10-11] MEDS: GABAPENTIN 300 MG CAPSULE PO SCH (08:27)
[2017-10-11] MEDS: CHOLECALCIFEROL 1,000 UNIT TABLET PO SCH (08:27)
[2017-10-11] MEDS: SODIUM CHLORIDE FLUSH 10ML SYR IVF SCH ×2 (08:28→21:19)
[2017-10-11] MEDS: HEPARIN 5,000 UNITS/ML, 1ML SQ SCH ×2 (08:28→21:18)
[2017-10-11] MEDS: POLYETHYLENE GLYCOL 17 GM PACKET PO SCH (08:28)
[2017-10-11] MEDS: HYDROcodone/APAP 5/325 TABLET PO PRN (12:54)
[2017-10-11 13:32] VITALS: BP 164/73
[2017-10-11] MEDS: GABAPENTIN 100 MG CAPSULE PO SCH ×2 (17:20→21:18)
[2017-10-11 20:38] VITALS: BP 160/67
[2017-10-11] MEDS: ATORVASTATIN 40 MG TABLET PO SCH (21:18)
[2017-10-11] MEDS: INSULIN DETEMIR 100 UNITS/ML, PEN SQ-INSULIN SCH (21:19)
[2017-10-12] MEDS: PIPERACILLIN/TAZO/PMX 2.25GM 50 ML IVPB SCH ×2 (00:56→18:39)
[2017-10-12 01:02] VITALS: BP 158/76
[2017-10-12] MEDS: HYDROcodone/APAP 5/325 TABLET PO PRN ×2 (03:11→22:58)
[2017-10-12 05:52] LABS: BASOPHILS # (AUTO) 0.02 x10^3/uL (0-0.1); BASOPHILS % (AUTO) 0 % (0-1); EOSINOPHILS # (AUTO) 0.04 x10^3/uL (0-0.4); EOSINOPHILS % (AUTO) 0 % (1-7); LYMPHOCYTES # (AUTO) 0.88 x10^3/uL (1-3.4); LYMPHOCYTES % (AUTO) 7 % (22-44); MD NO; MEAN CORPUSCULAR HEMOGLOBIN 31.6 pg (27.5-34.5); MEAN CORPUSCULAR HGB CONC 33.8 g/dL (33.2-36.2); MEAN CORPUSCULAR VOLUME 93.6 fL (81-97); MEAN PLATELET VOLUME 7.9 fL (7.4-10.4); MONOCYTES # (AUTO) 0.61 x10^3/uL (0.2-0.8); MONOCYTES % (AUTO) 5 % (2-9); NEUTROPHILS # (AUTO) 10.87 x10^3/uL (1.8-6.8); NEUTROPHILS % (AUTO) 88 % (42-75); PLATELET COUNT 244 x10^3/uL (130-400); RED BLOOD COUNT 2.62 x10^6/uL (4.38-5.82); RED CELL DISTRIBUTION WIDTH 14.5 % (9.4-14.8)
[2017-10-12 05:56] LABS: ALBUMIN 2.2 g/dL (3.4-5.0); ANION GAP 10 mmol/L (5-15); CALCIUM 8.3 mg/dL (8.5-10.1); CHLORIDE 99 mmol/L (98-107)
[2017-10-12] MEDS: IRON SUCROSE COMPLEX 100MG/5ML IV SCH (05:58)
[2017-10-12 05:59] LABS: ALANINE AMINOTRANSFERASE 20 U/L (12-78); ALKALINE PHOSPHATASE 156 U/L (45-117); BILIRUBIN,TOTAL 0.8 mg/dL (0.2-1.0); CREATININE 4.79 mg/dL (0.7-1.3); TOTAL PROTEIN 6.4 g/dL (6.4-8.2)
[2017-10-12 07:39] VITALS: BP 119/76
[2017-10-12] MEDS: INSULIN ASPART 100 UNITS/ML, PEN SQ-INSULIN SCH ×4 (08:01→23:02)
[2017-10-12] MEDS: ASPIRIN 81 MG TABLET EC PO SCH (08:02)
[2017-10-12] MEDS: SEVELAMER 800MG TABLET PO SCH ×3 (08:02→22:59)
[2017-10-12] MEDS: GABAPENTIN 100 MG CAPSULE PO SCH ×3 (08:02→22:59)
[2017-10-12] MEDS: CLOPIDOGREL 75 MG TABLET PO SCH (08:02)
[2017-10-12] MEDS: CHOLECALCIFEROL 1,000 UNIT TABLET PO SCH (08:03)
[2017-10-12] MEDS: HEPARIN 5,000 UNITS/ML, 1ML SQ SCH ×2 (08:03→23:00)
[2017-10-12] MEDS: SODIUM CHLORIDE FLUSH 10ML SYR IVF SCH ×2 (08:03→21:00)
[2017-10-12] MEDS: POLYETHYLENE GLYCOL 17 GM PACKET PO SCH (08:04)
[2017-10-12] MEDS: SODIUM CHLORIDE 0.9% 1,000 ML IV SCH (08:11)
[2017-10-12 13:00] VITALS: BP 149/65
[2017-10-12] MEDS: LINEZOLID 600 MG TABLET PO SCH (18:40)
[2017-10-12 19:40] VITALS: BP 144/74
[2017-10-12] MEDS: morphine SULFATE 10 MG/ML, 1ML IVPush PRN (22:10)
[2017-10-12] MEDS: ATORVASTATIN 40 MG TABLET PO SCH (22:59)
[2017-10-12] MEDS ORDERED: ALUMINUM/MAG/SIMETHICONE 30 ML UDC PO PRN (23:00)
[2017-10-12] MEDS: INSULIN DETEMIR 100 UNITS/ML, PEN SQ-INSULIN SCH (23:01)
[2017-10-12 23:19] LABS: TROPONIN I 0.243 ng/mL (0.000-0.045)
[2017-10-13 02:00] VITALS: BP 128/73
[2017-10-13] MEDS ORDERED: HEPARIN 25,000 UNITS/500ML PMX 500 ML IV PRN (02:30)
[2017-10-13] MEDS ORDERED: HEPARIN 5,000 UNITS/ML, 1ML IV ONE (02:30)
[2017-10-13] MEDS ORDERED: HEPARIN 5,000 UNITS/ML, 1ML IV PRN (02:30)
[2017-10-13 05:40] LABS: BASOPHILS # (AUTO) 0.03 x10^3/uL (0-0.1); BASOPHILS % (AUTO) 0 % (0-1); EOSINOPHILS # (AUTO) 0.03 x10^3/uL (0-0.4); EOSINOPHILS % (AUTO) 0 % (1-7); LYMPHOCYTES # (AUTO) 1.01 x10^3/uL (1-3.4); LYMPHOCYTES % (AUTO) 10 % (22-44); MD NO; MEAN CORPUSCULAR HGB CONC 34.1 g/dL (33.2-36.2); MEAN CORPUSCULAR VOLUME 93.9 fL (81-97); MEAN PLATELET VOLUME 7.7 fL (7.4-10.4); MONOCYTES % (AUTO) 7 % (2-9); NEUTROPHILS # (AUTO) 8.44 x10^3/uL (1.8-6.8); NEUTROPHILS % (AUTO) 83 % (42-75); PLATELET COUNT 251 x10^3/uL (130-400); RED BLOOD COUNT 2.59 x10^6/uL (4.38-5.82); RED CELL DISTRIBUTION WIDTH 14.2 % (9.4-14.8)
[2017-10-13 05:51] LABS: ANION GAP 9 mmol/L (5-15); CALCIUM 8.5 mg/dL (8.5-10.1); CHLORIDE 102 mmol/L (98-107); CREATININE 3.52 mg/dL (0.7-1.3)
[2017-10-13] MEDS: PIPERACILLIN/TAZO/PMX 2.25GM 50 ML IVPB SCH ×2 (06:30→20:55)
[2017-10-13] MEDS: IRON SUCROSE COMPLEX 100MG/5ML IV SCH (06:44)
[2017-10-13] MEDS: LINEZOLID 600 MG TABLET PO SCH ×2 (06:50→16:30)
[2017-10-13 07:33] VITALS: BP 129/62
[2017-10-13] MEDS: INSULIN ASPART 100 UNITS/ML, PEN SQ-INSULIN SCH ×4 (08:31→23:14)
[2017-10-13] MEDS: SODIUM CHLORIDE FLUSH 10ML SYR IVF SCH ×2 (08:32→20:55)
[2017-10-13] MEDS: SEVELAMER 800MG TABLET PO SCH ×3 (08:34→23:06)
[2017-10-13] MEDS: CLOPIDOGREL 75 MG TABLET PO SCH (08:34)
[2017-10-13] MEDS: ASPIRIN 81 MG TABLET EC PO SCH (08:34)
[2017-10-13] MEDS: GABAPENTIN 100 MG CAPSULE PO SCH ×3 (08:34→23:06)
[2017-10-13] MEDS: POLYETHYLENE GLYCOL 17 GM PACKET PO SCH (08:34)
[2017-10-13] MEDS: CHOLECALCIFEROL 1,000 UNIT TABLET PO SCH (08:35)
[2017-10-13] MEDS ORDERED: SODIUM CHLORIDE 0.9% 1,000 ML IV ONE (09:28)
[2017-10-13 15:35] VITALS: BP 128/63
[2017-10-13] MEDS ORDERED: MIDAZOLAM 1 MG/ML, 5ML ONE (16:05)
[2017-10-13] MEDS ORDERED: LIDOCAINE 2%, 20ML ONE (16:06)
[2017-10-13] MEDS ORDERED: FENTANYL PF 100 MCG/2ML ONE (16:06)
[2017-10-13] MEDS ORDERED: BIVALIRUDIN 250 MG ONE (16:32)
[2017-10-13] MEDS ORDERED: TICAGRELOR 90 MG TABLET ONE (17:13)
[2017-10-13] MEDS ORDERED: BIVALIRUDIN 250 MG in DEXTROSE 5% 50 ML IV SCH (17:24)
[2017-10-13 20:00] VITALS: BP 173/77
[2017-10-13] MEDS: hydrALAzine 20 MG/ML, 1ML IVPush PRN (21:09)
[2017-10-13] MEDS ORDERED: AMIODARONE 900 MG in DEXTROSE 5% 482 ML IV PRN (22:30)
[2017-10-13] MEDS ORDERED: ONDANSETRON 2MG/ML, 2ML IVPush PRN (22:30)
[2017-10-13] MEDS ORDERED: FILTER 0.22 MICRON IV PRN (23:00)
[2017-10-13] MEDS: ATORVASTATIN 40 MG TABLET PO SCH (23:06)
[2017-10-13] MEDS: TICAGRELOR 90 MG TABLET PO SCH (23:06)
[2017-10-13] MEDS: INSULIN DETEMIR 100 UNITS/ML, PEN SQ-INSULIN SCH (23:15)
[2017-10-13 23:16] VITALS: BP 154/77
[2017-10-14 04:00] VITALS: BP 117/72
[2017-10-14] MEDS ORDERED: DARBEPOETIN 60 MCG/ML SQ SCH (05:00)
[2017-10-14 06:04] LABS: BASOPHILS % (AUTO) 0 % (0-1); EOSINOPHILS % (AUTO) 0 % (1-7); LYMPHOCYTES # (AUTO) 0.38 x10^3/uL (1-3.4); LYMPHOCYTES % (AUTO) 3 % (22-44); MD NO; MEAN CORPUSCULAR HEMOGLOBIN 31.4 pg (27.5-34.5); MEAN CORPUSCULAR HGB CONC 33.3 g/dL (33.2-36.2); MEAN CORPUSCULAR VOLUME 94.4 fL (81-97); MEAN PLATELET VOLUME 7.9 fL (7.4-10.4); MONOCYTES # (AUTO) 0.66 x10^3/uL (0.2-0.8); MONOCYTES % (AUTO) 4 % (2-9); NEUTROPHILS # (AUTO) 14.62 x10^3/uL (1.8-6.8); NEUTROPHILS % (AUTO) 93 % (42-75); PLATELET COUNT 264 x10^3/uL (130-400); RED BLOOD COUNT 2.76 x10^6/uL (4.38-5.82); RED CELL DISTRIBUTION WIDTH 14.3 % (9.4-14.8)
[2017-10-14 06:12] LABS: CALCIUM 8.5 mg/dL (8.5-10.1); CREATININE 4.37 mg/dL (0.7-1.3)
[2017-10-14] MEDS: IRON SUCROSE COMPLEX 100MG/5ML IV SCH (06:17)
[2017-10-14 06:18] LABS: ANION GAP 11 mmol/L (5-15); CHLORIDE 102 mmol/L (98-107)
[2017-10-14 07:35] VITALS: BP 128/71
[2017-10-14] MEDS: INSULIN ASPART 100 UNITS/ML, PEN SQ-INSULIN SCH ×4 (07:50→20:49)
[2017-10-14] MEDS: GABAPENTIN 100 MG CAPSULE PO SCH ×3 (09:00→20:45)
[2017-10-14] MEDS: SEVELAMER 800MG TABLET PO SCH ×3 (09:00→20:45)
[2017-10-14] MEDS: TICAGRELOR 90 MG TABLET PO SCH ×2 (11:07→20:45)
[2017-10-14 12:40] VITALS: BP 127/62
[2017-10-14] MEDS: PIPERACILLIN/TAZO/PMX 2.25GM 50 ML IVPB SCH (13:41)
[2017-10-14] MEDS: SODIUM CHLORIDE FLUSH 10ML SYR IVF SCH ×2 (13:41→22:38)
[2017-10-14] MEDS: ASPIRIN 81 MG TABLET EC PO SCH (13:41)
[2017-10-14] MEDS: LINEZOLID 600 MG TABLET PO SCH (13:42)
[2017-10-14] MEDS: POLYETHYLENE GLYCOL 17 GM PACKET PO SCH (13:42)
[2017-10-14] MEDS: HYDROcodone/APAP 5/325 TABLET PO PRN (16:24)
[2017-10-14 18:42] VITALS: BP 101/52
[2017-10-14] MEDS: morphine SULFATE 10 MG/ML, 1ML IVPush PRN (20:40)
[2017-10-14] MEDS: ATORVASTATIN 40 MG TABLET PO SCH (20:45)
[2017-10-14] MEDS: AMIODARONE 200 MG TABLET PO SCH (20:45)
[2017-10-14] MEDS: CHOLECALCIFEROL 1,000 UNIT TABLET PO SCH (20:46)
[2017-10-14] MEDS: INSULIN DETEMIR 100 UNITS/ML, PEN SQ-INSULIN SCH (20:49)
[2017-10-14] MEDS ORDERED: DEXAMETHASONE OPHTH 0.1%, 5ML EACHEYE SCH (21:00)
[2017-10-14] MEDS: predniSOLONE OPHTH SUSP 1%, 5ML EACHEYE SCH (22:37)
[2017-10-14] MEDS: DIPHENHYDRAMINE 50 MG CAPSULE PO PRN (23:19)
[2017-10-15] MEDS: PIPERACILLIN/TAZO/PMX 2.25GM 50 ML IVPB SCH ×2 (00:31→13:46)
[2017-10-15] MEDS: LINEZOLID 600 MG TABLET PO SCH ×2 (00:31→13:46)
[2017-10-15 01:11] VITALS: BP 126/67
[2017-10-15] MEDS: morphine SULFATE 10 MG/ML, 1ML IVPush PRN (04:05)
[2017-10-15 05:49] LABS: ALBUMIN 2.1 g/dL (3.4-5.0); ANION GAP 9 mmol/L (5-15); CALCIUM 8.3 mg/dL (8.5-10.1); CHLORIDE 102 mmol/L (98-107); CREATININE 3.79 mg/dL (0.7-1.3)
[2017-10-15 05:59] LABS: BASOPHILS # (AUTO) 0.02 x10^3/uL (0-0.1); BASOPHILS % (AUTO) 0 % (0-1); EOSINOPHILS # (AUTO) 0.26 x10^3/uL (0-0.4); EOSINOPHILS % (AUTO) 3 % (1-7); LYMPHOCYTES # (AUTO) 0.89 x10^3/uL (1-3.4); LYMPHOCYTES % (AUTO) 11 % (22-44); MD NO; MEAN CORPUSCULAR HEMOGLOBIN 31.7 pg (27.5-34.5); MEAN CORPUSCULAR HGB CONC 33.8 g/dL (33.2-36.2); MEAN CORPUSCULAR VOLUME 93.9 fL (81-97); MEAN PLATELET VOLUME 7.4 fL (7.4-10.4); MONOCYTES # (AUTO) 0.44 x10^3/uL (0.2-0.8); MONOCYTES % (AUTO) 6 % (2-9); NEUTROPHILS # (AUTO) 6.53 x10^3/uL (1.8-6.8); NEUTROPHILS % (AUTO) 80 % (42-75); PLATELET COUNT 267 x10^3/uL (130-400); RED BLOOD COUNT 2.54 x10^6/uL (4.38-5.82); RED CELL DISTRIBUTION WIDTH 15.1 % (9.4-14.8)
[2017-10-15] MEDS: predniSOLONE OPHTH SUSP 1%, 5ML EACHEYE SCH ×4 (06:53→19:59)
[2017-10-15] MEDS: IRON SUCROSE COMPLEX 100MG/5ML IV SCH (06:53)
[2017-10-15] MEDS: HYDROcodone/APAP 5/325 TABLET PO PRN ×3 (07:00→19:58)
[2017-10-15] MEDS: INSULIN ASPART 100 UNITS/ML, PEN SQ-INSULIN SCH ×4 (07:00→23:06)
[2017-10-15 08:12] VITALS: BP 125/52
[2017-10-15] MEDS: CHOLECALCIFEROL 1,000 UNIT TABLET PO SCH (08:51)
[2017-10-15] MEDS: SODIUM CHLORIDE FLUSH 10ML SYR IVF SCH ×2 (08:51→19:59)
[2017-10-15] MEDS: TICAGRELOR 90 MG TABLET PO SCH ×2 (08:51→19:59)
[2017-10-15] MEDS: AMIODARONE 200 MG TABLET PO SCH (08:51)
[2017-10-15] MEDS: GABAPENTIN 100 MG CAPSULE PO SCH ×3 (08:51→19:58)
[2017-10-15] MEDS: SEVELAMER 800MG TABLET PO SCH ×2 (08:51→13:46)
[2017-10-15] MEDS: ASPIRIN 81 MG TABLET EC PO SCH (08:51)
[2017-10-15] MEDS: POLYETHYLENE GLYCOL 17 GM PACKET PO SCH (09:00)
[2017-10-15 13:43] VITALS: BP 145/55
[2017-10-15 19:52] VITALS: BP 160/67
[2017-10-15] MEDS: ATORVASTATIN 40 MG TABLET PO SCH (19:59)
[2017-10-15] MEDS: INSULIN DETEMIR 100 UNITS/ML, PEN SQ-INSULIN SCH (20:03)
[2017-10-15] MEDS: TEMAZEPAM 15 MG CAPSULE PO PRN (21:32)
[2017-10-15] MEDS ORDERED: FUROSEMIDE 40 MG/4 ML IV ONE (22:00)
[2017-10-16 02:03] VITALS: BP 164/68
[2017-10-16] MEDS: LINEZOLID 600 MG TABLET PO SCH ×2 (02:06→13:05)
[2017-10-16] MEDS: PIPERACILLIN/TAZO/PMX 2.25GM 50 ML IVPB SCH ×2 (02:06→13:27)
[2017-10-16 05:20] LABS: BASOPHILS # (AUTO) 0.01 x10^3/uL (0-0.1); BASOPHILS % (AUTO) 0 % (0-1); EOSINOPHILS # (AUTO) 0.11 x10^3/uL (0-0.4); EOSINOPHILS % (AUTO) 2 % (1-7); LYMPHOCYTES # (AUTO) 0.52 x10^3/uL (1-3.4); LYMPHOCYTES % (AUTO) 8 % (22-44); MD NO; MEAN CORPUSCULAR HEMOGLOBIN 31.4 pg (27.5-34.5); MEAN CORPUSCULAR HGB CONC 33.5 g/dL (33.2-36.2); MEAN CORPUSCULAR VOLUME 93.7 fL (81-97); MEAN PLATELET VOLUME 7.2 fL (7.4-10.4); MONOCYTES # (AUTO) 0.43 x10^3/uL (0.2-0.8); MONOCYTES % (AUTO) 7 % (2-9); NEUTROPHILS # (AUTO) 5.54 x10^3/uL (1.8-6.8); NEUTROPHILS % (AUTO) 84 % (42-75); PLATELET COUNT 240 x10^3/uL (130-400); RED BLOOD COUNT 2.62 x10^6/uL (4.38-5.82); RED CELL DISTRIBUTION WIDTH 14.6 % (9.4-14.8)
[2017-10-16 05:27] LABS: CHLORIDE 97 mmol/L (98-107)
[2017-10-16 05:34] LABS: ALBUMIN 2.3 g/dL (3.4-5.0); ANION GAP 8 mmol/L (5-15); CALCIUM 8.2 mg/dL (8.5-10.1); CREATININE 5.04 mg/dL (0.7-1.3)
[2017-10-16] MEDS: IRON SUCROSE COMPLEX 100MG/5ML IV SCH (06:10)
[2017-10-16] MEDS: predniSOLONE OPHTH SUSP 1%, 5ML EACHEYE SCH ×4 (06:11→21:58)
[2017-10-16] MEDS: HYDROcodone/APAP 5/325 TABLET PO PRN ×2 (07:45→13:27)
[2017-10-16] MEDS: SEVELAMER 800MG TABLET PO SCH ×3 (07:45→16:41)
[2017-10-16] MEDS: INSULIN ASPART 100 UNITS/ML, PEN SQ-INSULIN SCH ×4 (07:46→21:58)
[2017-10-16] MEDS ORDERED: FUROSEMIDE 40 MG/4 ML IV ONE ×2 (08:30→22:30)
[2017-10-16] MEDS ORDERED: DARBEPOETIN 60 MCG/ML SQ SCH (08:47)
[2017-10-16 08:54] VITALS: BP 122/81
[2017-10-16] MEDS: CHOLECALCIFEROL 1,000 UNIT TABLET PO SCH (11:08)
[2017-10-16] MEDS: TICAGRELOR 90 MG TABLET PO SCH ×2 (11:09→21:59)
[2017-10-16] MEDS: GABAPENTIN 100 MG CAPSULE PO SCH ×3 (11:09→21:59)
[2017-10-16] MEDS: SODIUM CHLORIDE FLUSH 10ML SYR IVF SCH ×2 (11:09→21:59)
[2017-10-16] MEDS: POLYETHYLENE GLYCOL 17 GM PACKET PO SCH (11:09)
[2017-10-16] MEDS: ASPIRIN 81 MG TABLET EC PO SCH (11:09)
[2017-10-16 12:17] LABS: HCT (SEDRATE) 24.2 % (39.2-51.8)
[2017-10-16] MEDS: CARVEDILOL 3.125 MG TABLET PO SCH (16:41)
[2017-10-16 16:42] VITALS: BP 157/70
[2017-10-16 19:14] VITALS: BP 166/70
[2017-10-16] MEDS: morphine SULFATE 10 MG/ML, 1ML IVPush PRN (20:20)
[2017-10-16] MEDS: INSULIN DETEMIR 100 UNITS/ML, PEN SQ-INSULIN SCH (21:58)
[2017-10-16] MEDS: ATORVASTATIN 40 MG TABLET PO SCH (21:59)
[2017-10-16] MEDS: TEMAZEPAM 15 MG CAPSULE PO PRN (22:00)
[2017-10-16] MEDS ORDERED: LORazepam 2 MG/ML, 1ML IVPush ONE (22:00)
[2017-10-16 23:36] LABS: ALANINE AMINOTRANSFERASE 20 U/L (12-78); ALBUMIN 2.4 g/dL (3.4-5.0); ANION GAP 13 mmol/L (5-15); CALCIUM 8.3 mg/dL (8.5-10.1); CHLORIDE 93 mmol/L (98-107); CREATININE 5.85 mg/dL (0.7-1.3)
[2017-10-16 23:52] LABS: ALKALINE PHOSPHATASE 112 U/L (45-117); BILIRUBIN,TOTAL 0.5 mg/dL (0.2-1.0); TOTAL PROTEIN 6.9 g/dL (6.4-8.2)
[2017-10-17] MEDS: PIPERACILLIN/TAZO/PMX 2.25GM 50 ML IVPB SCH ×2 (01:13→13:42)
[2017-10-17] MEDS: LINEZOLID 600 MG TABLET PO SCH ×2 (01:14→13:31)
[2017-10-17 01:15] VITALS: BP 149/69
[2017-10-17 05:16] LABS: BASOPHILS # (AUTO) 0.02 x10^3/uL (0-0.1); BASOPHILS % (AUTO) 0 % (0-1); EOSINOPHILS # (AUTO) 0.02 x10^3/uL (0-0.4); EOSINOPHILS % (AUTO) 0 % (1-7); LYMPHOCYTES # (AUTO) 0.51 x10^3/uL (1-3.4); LYMPHOCYTES % (AUTO) 7 % (22-44); MD NO; MEAN CORPUSCULAR HEMOGLOBIN 31.4 pg (27.5-34.5); MEAN CORPUSCULAR HGB CONC 33.4 g/dL (33.2-36.2); MEAN PLATELET VOLUME 7.5 fL (7.4-10.4); MONOCYTES # (AUTO) 0.61 x10^3/uL (0.2-0.8); MONOCYTES % (AUTO) 8 % (2-9); NEUTROPHILS # (AUTO) 6.16 x10^3/uL (1.8-6.8); NEUTROPHILS % (AUTO) 84 % (42-75); PLATELET COUNT 211 x10^3/uL (130-400); RED BLOOD COUNT 2.65 x10^6/uL (4.38-5.82); RED CELL DISTRIBUTION WIDTH 14.9 % (9.4-14.8)
[2017-10-17 05:26] LABS: CHLORIDE 95 mmol/L (98-107)
[2017-10-17 05:36] LABS: ALBUMIN 2.2 g/dL (3.4-5.0); ANION GAP 14 mmol/L (5-15); CALCIUM 8.3 mg/dL (8.5-10.1); CREATININE 6.16 mg/dL (0.7-1.3)
[2017-10-17] MEDS: predniSOLONE OPHTH SUSP 1%, 5ML EACHEYE SCH ×4 (06:00→19:57)
[2017-10-17] MEDS: INSULIN ASPART 100 UNITS/ML, PEN SQ-INSULIN SCH ×4 (07:00→20:06)
[2017-10-17 07:52] VITALS: BP 166/75
[2017-10-17] MEDS: SEVELAMER 800MG TABLET PO SCH ×3 (08:00→17:45)
[2017-10-17] MEDS: POLYETHYLENE GLYCOL 17 GM PACKET PO SCH (09:00)
[2017-10-17] MEDS: IRON SUCROSE COMPLEX 100MG/5ML IV SCH (13:28)
[2017-10-17] MEDS: SODIUM CHLORIDE FLUSH 10ML SYR IVF SCH ×2 (13:29→19:57)
[2017-10-17] MEDS: TICAGRELOR 90 MG TABLET PO SCH ×2 (13:29→19:57)
[2017-10-17] MEDS: ASPIRIN 81 MG TABLET EC PO SCH (13:30)
[2017-10-17] MEDS: CARVEDILOL 3.125 MG TABLET PO SCH ×2 (13:30→17:59)
[2017-10-17] MEDS: GABAPENTIN 100 MG CAPSULE PO SCH ×3 (13:30→19:57)
[2017-10-17] MEDS: CHOLECALCIFEROL 1,000 UNIT TABLET PO SCH (13:31)
[2017-10-17] MEDS: HYDROcodone/APAP 5/325 TABLET PO PRN ×2 (13:52→17:45)
[2017-10-17 17:36] VITALS: BP 137/68
[2017-10-17] MEDS: ATORVASTATIN 40 MG TABLET PO SCH (19:57)
[2017-10-17 19:59] VITALS: BP 130/54
[2017-10-17] MEDS: INSULIN DETEMIR 100 UNITS/ML, PEN SQ-INSULIN SCH (20:02)
[2017-10-17] MEDS: TEMAZEPAM 15 MG CAPSULE PO PRN (21:32)
[2017-10-18] MEDS: PIPERACILLIN/TAZO/PMX 2.25GM 50 ML IVPB SCH ×2 (01:02→14:17)
[2017-10-18] MEDS: LINEZOLID 600 MG TABLET PO SCH ×2 (01:24→14:17)
[2017-10-18 01:38] VITALS: BP 140/74
[2017-10-18] MEDS: HYDROcodone/APAP 5/325 TABLET PO PRN ×3 (02:14→17:33)
[2017-10-18] MEDS: CARVEDILOL 3.125 MG TABLET PO SCH ×2 (05:34→17:33)
[2017-10-18] MEDS: predniSOLONE OPHTH SUSP 1%, 5ML EACHEYE SCH ×4 (05:35→20:21)
[2017-10-18] MEDS: morphine SULFATE 10 MG/ML, 1ML IVPush PRN (05:43)
[2017-10-18 05:59] LABS: CHLORIDE 98 mmol/L (98-107)
[2017-10-18 06:26] LABS: ANION GAP 9 mmol/L (5-15); CALCIUM 8.3 mg/dL (8.5-10.1); CREATININE 4.67 mg/dL (0.7-1.3)
[2017-10-18] MEDS: INSULIN ASPART 100 UNITS/ML, PEN SQ-INSULIN SCH ×4 (07:00→20:32)
[2017-10-18 07:06] LABS: BASOPHILS # (AUTO) 0.03 x10^3/uL (0-0.1); BASOPHILS % (AUTO) 1 % (0-1); EOSINOPHILS # (AUTO) 0.22 x10^3/uL (0-0.4); EOSINOPHILS % (AUTO) 4 % (1-7); LYMPHOCYTES # (AUTO) 0.72 x10^3/uL (1-3.4); LYMPHOCYTES % (AUTO) 14 % (22-44); MD NO; MEAN CORPUSCULAR HEMOGLOBIN 31.3 pg (27.5-34.5); MEAN CORPUSCULAR HGB CONC 33.6 g/dL (33.2-36.2); MEAN CORPUSCULAR VOLUME 93.3 fL (81-97); MEAN PLATELET VOLUME 7.5 fL (7.4-10.4); MONOCYTES # (AUTO) 0.54 x10^3/uL (0.2-0.8); MONOCYTES % (AUTO) 10 % (2-9); NEUTROPHILS # (AUTO) 3.81 x10^3/uL (1.8-6.8); NEUTROPHILS % (AUTO) 72 % (42-75); PLATELET COUNT 188 x10^3/uL (130-400); RED BLOOD COUNT 2.52 x10^6/uL (4.38-5.82); RED CELL DISTRIBUTION WIDTH 14.8 % (9.4-14.8)
[2017-10-18 07:44] VITALS: BP 132/66
[2017-10-18] MEDS: POLYETHYLENE GLYCOL 17 GM PACKET PO SCH (09:00)
[2017-10-18] MEDS: TICAGRELOR 90 MG TABLET PO SCH ×2 (10:09→20:22)
[2017-10-18] MEDS: GABAPENTIN 100 MG CAPSULE PO SCH ×3 (10:09→20:22)
[2017-10-18] MEDS: ASPIRIN 81 MG TABLET EC PO SCH (10:10)
[2017-10-18] MEDS: SODIUM CHLORIDE FLUSH 10ML SYR IVF SCH ×2 (10:10→20:22)
[2017-10-18] MEDS: SEVELAMER 800MG TABLET PO SCH ×3 (10:10→17:32)
[2017-10-18] MEDS: CHOLECALCIFEROL 1,000 UNIT TABLET PO SCH (10:10)
[2017-10-18 12:51] VITALS: BP 131/50
[2017-10-18 19:51] VITALS: BP 170/80
[2017-10-18] MEDS: ATORVASTATIN 40 MG TABLET PO SCH (20:22)
[2017-10-18] MEDS: INSULIN DETEMIR 100 UNITS/ML, PEN SQ-INSULIN SCH (20:27)
[2017-10-18] MEDS: hydrALAzine 20 MG/ML, 1ML IVPush PRN (20:35)
[2017-10-18] MEDS ORDERED: ALBUTEROL/IPRATROPIUM 2.5MG/0.5MG, 3 ML ONE (20:55)
[2017-10-18] MEDS ORDERED: FUROSEMIDE 40 MG/4 ML IV STA (22:32)
[2017-10-18] MEDS ORDERED: FUROSEMIDE 40 MG/4 ML ONE (22:35)
[2017-10-19] MEDS ORDERED: ALBUTEROL SULFATE 2.5 MG/3 ML NPPB PRN (00:30)
[2017-10-19] MEDS: DIPHENHYDRAMINE 50 MG CAPSULE PO PRN ×2 (04:02→23:29)
[2017-10-19 04:04] VITALS: BP 166/73
[2017-10-19] MEDS: CARVEDILOL 3.125 MG TABLET PO SCH ×2 (06:12→17:46)
[2017-10-19] MEDS: predniSOLONE OPHTH SUSP 1%, 5ML EACHEYE SCH ×4 (06:12→19:42)
[2017-10-19] MEDS: INSULIN ASPART 100 UNITS/ML, PEN SQ-INSULIN SCH ×4 (08:03→19:53)
[2017-10-19] MEDS: SODIUM CHLORIDE FLUSH 10ML SYR IVF SCH ×2 (08:03→19:43)
[2017-10-19] MEDS: SEVELAMER 800MG TABLET PO SCH ×3 (08:03→17:46)
[2017-10-19] MEDS: ASPIRIN 81 MG TABLET EC PO SCH (08:03)
[2017-10-19] MEDS: GABAPENTIN 100 MG CAPSULE PO SCH ×3 (08:03→19:43)
[2017-10-19] MEDS: CHOLECALCIFEROL 1,000 UNIT TABLET PO SCH (08:04)
[2017-10-19] MEDS: POLYETHYLENE GLYCOL 17 GM PACKET PO SCH (08:04)
[2017-10-19] MEDS: SULFAMETH./TRIMETHOPRIM SS 400MG/80MG TABLET PO SCH (08:04)
[2017-10-19] MEDS: TICAGRELOR 90 MG TABLET PO SCH ×2 (08:04→19:43)
[2017-10-19 08:25] VITALS: BP 164/75
[2017-10-19] MEDS: HYDROcodone/APAP 5/325 TABLET PO PRN ×2 (12:58→23:29)
[2017-10-19 15:03] VITALS: BP 154/61
[2017-10-19] MEDS: TEMAZEPAM 15 MG CAPSULE PO PRN (19:43)
[2017-10-19] MEDS: ATORVASTATIN 40 MG TABLET PO SCH (19:43)
[2017-10-19] MEDS: INSULIN DETEMIR 100 UNITS/ML, PEN SQ-INSULIN SCH (19:49)
[2017-10-19 20:10] VITALS: BP 138/62
[2017-10-19 21:24] VITALS: BP 149/67
[2017-10-20 02:26] VITALS: BP 164/75
[2017-10-20] MEDS: predniSOLONE OPHTH SUSP 1%, 5ML EACHEYE SCH ×4 (05:24→21:08)
[2017-10-20] MEDS: CARVEDILOL 3.125 MG TABLET PO SCH ×2 (05:24→17:55)
[2017-10-20] MEDS: INSULIN ASPART 100 UNITS/ML, PEN SQ-INSULIN SCH ×4 (07:00→21:08)
[2017-10-20 08:34] VITALS: BP 158/72
[2017-10-20] MEDS: POLYETHYLENE GLYCOL 17 GM PACKET PO SCH (08:38)
[2017-10-20] MEDS: GABAPENTIN 100 MG CAPSULE PO SCH ×3 (08:39→21:09)
[2017-10-20] MEDS: ASPIRIN 81 MG TABLET EC PO SCH (08:39)
[2017-10-20] MEDS: SODIUM CHLORIDE FLUSH 10ML SYR IVF SCH ×2 (08:39→21:09)
[2017-10-20] MEDS: SEVELAMER 800MG TABLET PO SCH ×3 (08:39→16:42)
[2017-10-20] MEDS: CHOLECALCIFEROL 1,000 UNIT TABLET PO SCH (08:39)
[2017-10-20] MEDS: SULFAMETH./TRIMETHOPRIM SS 400MG/80MG TABLET PO SCH (08:40)
[2017-10-20] MEDS: TICAGRELOR 90 MG TABLET PO SCH ×2 (08:40→21:09)
[2017-10-20] MEDS ORDERED: TICA90TA PO (09:25)
[2017-10-20] MEDS ORDERED: SULF-16 PO (09:25)
[2017-10-20] MEDS ORDERED: CARV3.1212 PO (09:25)
[2017-10-20 14:42] VITALS: BP 156/70
[2017-10-20 14:44] VITALS: BP 156/70
[2017-10-20 20:29] VITALS: BP 156/66
[2017-10-20] MEDS: INSULIN DETEMIR 100 UNITS/ML, PEN SQ-INSULIN SCH (21:08)
[2017-10-20] MEDS: ATORVASTATIN 40 MG TABLET PO SCH (21:09)
[2017-10-20] MEDS: DIPHENHYDRAMINE 50 MG CAPSULE PO PRN (21:16)
[2017-10-20] MEDS: TEMAZEPAM 15 MG CAPSULE PO PRN (21:16)
[2017-10-21 02:35] VITALS: BP 171/79
[2017-10-21] MEDS: CARVEDILOL 3.125 MG TABLET PO SCH ×2 (06:00→20:13)
[2017-10-21] MEDS: predniSOLONE OPHTH SUSP 1%, 5ML EACHEYE SCH ×5 (06:00→20:13)
[2017-10-21 06:09] LABS: ALANINE AMINOTRANSFERASE 24 U/L (12-78); ALBUMIN 2.4 g/dL (3.4-5.0); ANION GAP 10 mmol/L (5-15); CALCIUM 8.6 mg/dL (8.5-10.1); CHLORIDE 101 mmol/L (98-107); CREATININE 4.91 mg/dL (0.7-1.3)
[2017-10-21 06:12] LABS: ALKALINE PHOSPHATASE 98 U/L (45-117); BILIRUBIN,TOTAL 0.5 mg/dL (0.2-1.0); TOTAL PROTEIN 6.8 g/dL (6.4-8.2)
[2017-10-21 06:22] LABS: BASOPHILS # (AUTO) 0.07 x10^3/uL (0-0.1); BASOPHILS % (AUTO) 1 % (0-1); EOSINOPHILS # (AUTO) 0.28 x10^3/uL (0-0.4); EOSINOPHILS % (AUTO) 2 % (1-7); LYMPHOCYTES % (AUTO) 16 % (22-44); MD SCAN; MEAN CORPUSCULAR HEMOGLOBIN 30.9 pg (27.5-34.5); MEAN CORPUSCULAR HGB CONC 33.2 g/dL (33.2-36.2); MEAN CORPUSCULAR VOLUME 93.1 fL (81-97); MEAN PLATELET VOLUME 7.1 fL (7.4-10.4); MONOCYTES # (AUTO) 1.18 x10^3/uL (0.2-0.8); MONOCYTES % (AUTO) 9 % (2-9); NEUTROPHILS # (AUTO) 9.89 x10^3/uL (1.8-6.8); NEUTROPHILS % (AUTO) 73 % (42-75); PLATELET COUNT 211 x10^3/uL (130-400); RED BLOOD COUNT 3.07 x10^6/uL (4.38-5.82); RED CELL DISTRIBUTION WIDTH 15.3 % (9.4-14.8)
[2017-10-21 06:28] LABS: TROPONIN I 0.128 ng/mL (0.000-0.045)
[2017-10-21] MEDS ORDERED: FUROSEMIDE 40 MG/4 ML IV ONE (06:30)
[2017-10-21] MEDS ORDERED: VANCOMYCIN PER PHARMACY MC PRN (06:30)
[2017-10-21] MEDS ORDERED: PIPERACILLIN/TAZO/PMX 2.25GM 50 ML IVPB SCH (06:30)
[2017-10-21] MEDS ORDERED: PHARMACOKINETIC MONITORING MC PRN (06:30)
[2017-10-21 06:55] VITALS: BP 155/67
[2017-10-21] MEDS: INSULIN ASPART 100 UNITS/ML, PEN SQ-INSULIN SCH ×4 (07:00→20:12)
[2017-10-21] MEDS: VANCOMYCIN 1,600 MG in SODIUM CHLORIDE 0.9% 250 ML IV ONE ×2 (07:00→10:24)
[2017-10-21] MEDS: SEVELAMER 800MG TABLET PO SCH ×3 (08:00→17:00)
[2017-10-21] MEDS: ASPIRIN 81 MG TABLET EC PO SCH (09:00)
[2017-10-21] MEDS: SODIUM CHLORIDE FLUSH 10ML SYR IVF SCH ×2 (09:00→20:31)
[2017-10-21] MEDS: GABAPENTIN 100 MG CAPSULE PO SCH ×3 (09:00→20:12)
[2017-10-21] MEDS: POLYETHYLENE GLYCOL 17 GM PACKET PO SCH (09:00)
[2017-10-21] MEDS: CHOLECALCIFEROL 1,000 UNIT TABLET PO SCH (09:00)
[2017-10-21] MEDS: TICAGRELOR 90 MG TABLET PO SCH ×2 (09:00→20:13)
[2017-10-21] MEDS: ALBUTEROL SULFATE 2.5 MG/3 ML NPPB SCH ×4 (09:05→21:56)
[2017-10-21] MEDS ORDERED: [UNRECOGNIZED DRUG - REMARK] XX PRN (11:00)
[2017-10-21] MEDS ORDERED: ACETYLCYSTEINE 20%, 4ML NPPB SCH (11:00)
[2017-10-21] MEDS ORDERED: MEROPENEM 500 MG in SODIUM CHLORIDE 0.9% 100 ML IV SCH (13:00)
[2017-10-21] MEDS ORDERED: LIDOCAINE 2%, 20ML ONE (13:33)
[2017-10-21 13:38] VITALS: BP 137/57
[2017-10-21] MEDS ORDERED: ALBUMIN HUMAN 25% 100 ML IV ONE (17:00)
[2017-10-21] MEDS ORDERED: MEROPENEM 500 MG in SODIUM CHLORIDE 0.9% 50 ML IV SCH (20:00)
[2017-10-21] MEDS: ATORVASTATIN 40 MG TABLET PO SCH (20:13)
[2017-10-21] MEDS: INSULIN DETEMIR 100 UNITS/ML, PEN SQ-INSULIN SCH (20:14)
[2017-10-21 20:39] VITALS: BP 153/68
[2017-10-22] MEDS: TEMAZEPAM 15 MG CAPSULE PO PRN (00:31)
[2017-10-22 00:47] VITALS: BP 126/60
[2017-10-22] MEDS: HYDROcodone/APAP 5/325 TABLET PO PRN ×2 (01:31→10:55)
[2017-10-22] MEDS: ALBUTEROL SULFATE 2.5 MG/3 ML NPPB SCH ×4 (02:04→16:30)
[2017-10-22] MEDS: INSULIN ASPART 100 UNITS/ML, PEN SQ-INSULIN SCH ×2 (07:00→11:29)
[2017-10-22 07:51] VITALS: BP 131/50
[2017-10-22] MEDS: POLYETHYLENE GLYCOL 17 GM PACKET PO SCH (09:00)
[2017-10-22] MEDS: CARVEDILOL 3.125 MG TABLET PO SCH (10:05)
[2017-10-22] MEDS: SEVELAMER 800MG TABLET PO SCH ×3 (10:05→14:21)
[2017-10-22] MEDS: GABAPENTIN 100 MG CAPSULE PO SCH (10:06)
[2017-10-22] MEDS: ASPIRIN 81 MG TABLET EC PO SCH (10:06)
[2017-10-22] MEDS: predniSOLONE OPHTH SUSP 1%, 5ML EACHEYE SCH ×2 (10:06→10:54)
[2017-10-22] MEDS: SODIUM CHLORIDE FLUSH 10ML SYR IVF SCH (10:06)
[2017-10-22] MEDS: TICAGRELOR 90 MG TABLET PO SCH (10:06)
[2017-10-22] MEDS: CHOLECALCIFEROL 1,000 UNIT TABLET PO SCH (10:55)
[2017-10-22] MEDS ORDERED: SULFAMETH./TRIMETHOPRIM DS 800MG/160MG TABLET PO SCH (12:30)
[2017-10-22 13:06] VITALS: BP 117/53
== END 2017-10-22 17:38 | disposition home health service (06) | DRG 853 ==
LOC: 4WST 02:10 → 5SO 10-13 16:05 → CCU 10-17 00:47 → 5SO 10-17 01:25 → 4EST 10-20 19:30
PROVIDERS: ADMIT Hospitalist; ATTEND Internal Medicine
PROC: 5A1D70Z Performance of Urinary Filtration, Intermittent, Less than 6 Hours Per Day (ICD-10-PCS; 2017-10-03)
PROC: 5A1D70Z Performance of Urinary Filtration, Intermittent, Less than 6 Hours Per Day (ICD-10-PCS; 2017-10-03)
PROC: 5A1D70Z Performance of Urinary Filtration, Intermittent, Less than 6 Hours Per Day (ICD-10-PCS; 2017-10-05)
PROC: 5A1D70Z Performance of Urinary Filtration, Intermittent, Less than 6 Hours Per Day (ICD-10-PCS; 2017-10-07)
PROC: 5A1D70Z Performance of Urinary Filtration, Intermittent, Less than 6 Hours Per Day (ICD-10-PCS; 2017-10-10)
PROC: 5A1D70Z Performance of Urinary Filtration, Intermittent, Less than 6 Hours Per Day (ICD-10-PCS; 2017-10-12)
PROC: 4A023N7 Measurement of Cardiac Sampling and Pressure, Left Heart, Percutaneous Approach (ICD-10-PCS; principal; 2017-10-13)
PROC: 027034Z Dilation of Coronary Artery, One Artery with Drug-eluting Intraluminal Device, Percutaneous Approach (ICD-10-PCS; 2017-10-13)
PROC: B215YZZ Fluoroscopy of Left Heart using Other Contrast (ICD-10-PCS; 2017-10-13)
PROC: B211YZZ Fluoroscopy of Multiple Coronary Arteries using Other Contrast (ICD-10-PCS; 2017-10-13)
PROC: 5A1D70Z Performance of Urinary Filtration, Intermittent, Less than 6 Hours Per Day (ICD-10-PCS; 2017-10-14)
PROC: 5A1D70Z Performance of Urinary Filtration, Intermittent, Less than 6 Hours Per Day (ICD-10-PCS; 2017-10-17)
PROC: 5A1D70Z Performance of Urinary Filtration, Intermittent, Less than 6 Hours Per Day (ICD-10-PCS; 2017-10-19)
PROC: 5A1D70Z Performance of Urinary Filtration, Intermittent, Less than 6 Hours Per Day (ICD-10-PCS; 2017-10-21)
PROC: 0W9B3ZZ Drainage of Left Pleural Cavity, Percutaneous Approach (ICD-10-PCS; 2017-10-21)
DX: A41.9 Sepsis, unspecified organism (principal); I21.4 Non-ST elevation (NSTEMI) myocardial infarction; J96.21 Acute and chronic respiratory failure with hypoxia; J18.9 Pneumonia, unspecified organism; J81.1 Chronic pulmonary edema; J90 Pleural effusion, not elsewhere classified; G92 Toxic encephalopathy; E11.21 Type 2 diabetes mellitus with diabetic nephropathy; E11.40 Type 2 diabetes mellitus with diabetic neuropathy, unspecified; N18.6 End stage renal disease; T87.44 Infection of amputation stump, left lower extremity; I12.0 Hypertensive chronic kidney disease with stage 5 chronic kidney disease or end stage renal disease; E11.52 Type 2 diabetes mellitus with diabetic peripheral angiopathy with gangrene; B96.1 Klebsiella pneumoniae [K. pneumoniae] as the cause of diseases classified elsewhere; B96.89 Other specified bacterial agents as the cause of diseases classified elsewhere; B95.7 Other staphylococcus as the cause of diseases classified elsewhere; I48.91 Unspecified atrial fibrillation; E11.22 Type 2 diabetes mellitus with diabetic chronic kidney disease; E78.5 Hyperlipidemia, unspecified; T17.990A Other foreign object in respiratory tract, part unspecified in causing asphyxiation, initial encounter; Y95 Nosocomial condition; D50.9 Iron deficiency anemia, unspecified; D63.1 Anemia in chronic kidney disease; I25.10 Atherosclerotic heart disease of native coronary artery without angina pectoris; I34.0 Nonrheumatic mitral (valve) insufficiency; Y83.8 Other surgical procedures as the cause of abnormal reaction of the patient, or of later complication, without mention of misadventure at the time of the procedure; M48.061 Spinal stenosis, lumbar region without neurogenic claudication; X58.XXXA Exposure to other specified factors, initial encounter; Y93.89 Activity, other specified; Y92.89 Other specified places as the place of occurrence of the external cause; Z79.4 Long term (current) use of insulin; Z80.0 Family history of malignant neoplasm of digestive organs; Z85.828 Personal history of other malignant neoplasm of skin; Z86.73 Personal history of transient ischemic attack (TIA), and cerebral infarction without residual deficits; Z87.891 Personal history of nicotine dependence; Z89.412 Acquired absence of left great toe; Z89.429 Acquired absence of other toe(s), unspecified side; Z97.0 Presence of artificial eye; Z99.2 Dependence on renal dialysis; Z99.81 Dependence on supplemental oxygen
CPT/HCPCS: 32555; 36415; 36600; 71010; 71020; 80048; 80053; 80069; 80202; 82150; 82306; 82310; 82550; 82553; 82728; 82803; 82805; 82945; 82962; 83036; 83540; 83550; 83615; 83735; 83880; 83970; 83986; 84100; 84145; 84157; 84484; 85025; 85045; 85379; 85520; 85651; 86140; 86704; 86706; 87040; 87070; 87077; 87186; 87205; 87340; 88305; 88311; 89051; 93005; 93306; 93458; 94640; 94667; 94668; 99156; 99157; 99285; C1760; C1894; C9600; J0583; J0881; J1644; J1756; J1815; J1940; J2185; J2250; J2405; J2543; J3010; J3370; J3490; J7608; J7613; P9047; C1725; C1769; C1874; C1887; J0282; J0360; J2060; J2270; J7030; J7050; J7060; Q9967

== ENCOUNTER 2018-02-28 08:34 | Day surgery (SDC) | payer MEDICARE ==
[~2018-02-28] VITALS: Ht 182.9 cm; Wt 74.8 kg
[~2018-02-28 08:34] MED LIST changes: +CARV3.1212 PO; +SULF-16 PO; +TICA90TA PO
[2018-02-28 09:23] VITALS: BP 146/71
[2018-02-28] MEDS ORDERED: AMOX1TAB64 PO (09:29)
[2018-02-28] MEDS ORDERED: ACET325C5 PO (09:29)
[2018-02-28] MEDS ORDERED: SIMV40TA3 PO (09:29)
[2018-02-28 10:11] LABS: BASOPHILS # (AUTO) 0.02 x10^3/uL (0-0.1); BASOPHILS % (AUTO) 0 % (0-1); EOSINOPHILS # (AUTO) 0.11 x10^3/uL (0-0.4); EOSINOPHILS % (AUTO) 1 % (1-7); LYMPHOCYTES # (AUTO) 1.93 x10^3/uL (1-3.4); LYMPHOCYTES % (AUTO) 24 % (22-44); MD NO; MEAN CORPUSCULAR HEMOGLOBIN 32.4 pg (27.5-34.5); MEAN CORPUSCULAR HGB CONC 33.6 g/dL (33.2-36.2); MEAN CORPUSCULAR VOLUME 96.6 fL (81-97); MEAN PLATELET VOLUME 6.4 fL (7.4-10.4); MONOCYTES # (AUTO) 0.57 x10^3/uL (0.2-0.8); MONOCYTES % (AUTO) 7 % (2-9); NEUTROPHILS # (AUTO) 5.58 x10^3/uL (1.8-6.8); NEUTROPHILS % (AUTO) 68 % (42-75); PLATELET COUNT 198 x10^3/uL (130-400); RED BLOOD COUNT 3.54 x10^6/uL (4.38-5.82); RED CELL DISTRIBUTION WIDTH 16.9 % (9.4-14.8)
[2018-02-28 10:19] LABS: ANION GAP 13 mmol/L (5-15); CALCIUM 8.8 mg/dL (8.5-10.1); CHLORIDE 95 mmol/L (98-107); CREATININE 4.64 mg/dL (0.7-1.3)
[2018-02-28] MEDS ORDERED: NALOXONE 1 MG/ML, 2ML ONE (10:27)
[2018-02-28] MEDS ORDERED: FLUMAZENIL 0.1 MG/1 ML, 5ML ONE (10:27)
[2018-02-28] MEDS ORDERED: MIDAZOLAM 1 MG/ML, 5ML ONE ×2 (10:27)
[2018-02-28] MEDS ORDERED: FENTANYL PF 100 MCG/2ML ONE (10:27)
[2018-02-28] MEDS ORDERED: HEPARIN 1,000 UNITS/ML, 10ML ONE (10:27)
[2018-02-28] MEDS ORDERED: PROTAMINE SULFATE 10 MG/ML, 25ML ONE (10:28)
[2018-02-28] MEDS ORDERED: LIDOCAINE 2%, 20ML ONE (10:32)
[2018-02-28] MEDS ORDERED: VISIPAQUE 270 MG/ML, 50ML BOTTLE ONE (11:00)
[2018-02-28] MEDS ORDERED: HYDROcodone/APAP 5/325 TABLET PO PRN (13:00)
== END 2018-02-28 15:50 ==
LOC: OUT 08:34
PROVIDERS: ATTEND Surgery
DX: T82.838A Hemorrhage due to vascular prosthetic devices, implants and grafts, initial encounter (principal); I70.263 Atherosclerosis of native arteries of extremities with gangrene, bilateral legs; Y83.8 Other surgical procedures as the cause of abnormal reaction of the patient, or of later complication, without mention of misadventure at the time of the procedure; Y92.89 Other specified places as the place of occurrence of the external cause; E11.22 Type 2 diabetes mellitus with diabetic chronic kidney disease; I12.0 Hypertensive chronic kidney disease with stage 5 chronic kidney disease or end stage renal disease; N18.6 End stage renal disease; I25.2 Old myocardial infarction; E78.00 Pure hypercholesterolemia, unspecified; I10 Essential (primary) hypertension; Z86.73 Personal history of transient ischemic attack (TIA), and cerebral infarction without residual deficits; Z98.42 Cataract extraction status, left eye; Z98.890 Other specified postprocedural states; Z89.412 Acquired absence of left great toe; Z79.82 Long term (current) use of aspirin
CPT/HCPCS: 36415; 36902; 37221; 75630; 80048; 85025; 99156; 99157; C1725; C1751; C1760; C1769; C1876; C1894; J1644; J2250; J3010; J3490; Q9966; J2720; J2310